=== PATIENT | female | born 1980 | race Caucasian/White ===

== ENCOUNTER 2017-08-28 15:40 | Emergency (ER) | payer OTHER, SELFPAY ==
[2017-08-28 16:57] VITALS: BP 130/85; PULSE 87; RESP 18; TEMP 36.6; O2SAT 100; BMI 21.0
[2017-08-28 17:18] LABS: UTC Influenza A Antigen Negative (Negative); UTC Influenza B Antigen Negative (Negative); UTC Strep Screen (Rapid) Negative (Negative)
--- NOTE | 2017-08-28 17:34 | HMH.EDUTC ---
[facility] [place]ression: Nausea & vomiting Qualifiers: Vomiting type: unspecified Vomiting Intractability: unspecified Qualified Code(s): R11.2 - Nausea with vomiting, unspecified Diarrhea Qualifiers: Diarrhea type: unspecified type Qualified Code(s): R19.7 - Diarrhea, unspecified Disposition: Home, Self-Care Condition on Discharge: Good Instructions: DI for Nausea -- Adult, Nausea and Vomiting-Adult, Diarrhea Additional Instructions: Increase fluids Brat diet If symptoms worsen or do not improve return or be seen in the ER Follow-up with primary care this week Return if fever develops Referrals: You Hernandez MD [Primary Care Provider] - Time of Disposition: 17:38 Medical Decision Making Vital Signs: 08/28/17 16:57 Temperature 97.8 F Temperature Source Temporal Artery Scan Pulse Rate [Brachial] 87 Respiratory Rate 18 Blood Pressure [Right Arm] 130/85 Blood Pressure Mean [Right Arm] 100 Blood Pressure Source [Right Arm] Automatic Cuff Blood Pressure Position [Right Arm] Sitting 02 Sat by Pulse Oximetry 100 Oxygen Delivery Method Room Air - Lab Data Lab Results 08/28/17 17:07: Influenza Type A Ag Negative, Influenza Type B Ag Negative, Strep Scn Rapid Clinic Negative Orders (Tests/Meds): ORDERS Category Date Time Status Strep Screen Confirmation Stat Micro 08/28/17 17:07 Received - Nehemias Inquiry Pt receiving controlled substance: No [facility] [place] - General Chief complaint: Urgent [facility] Center Stated complaint: Stomas virus Time Seen by Provider: 08/28/17 17:35 Mode of Arrival: Ambulatory Source of Information: Patient Limitations: No Limitations Description of Symptoms (Recalled from Triage Doc. by RN): SORE THROAT, ACHES, NAUSEA HEENT Symptoms (Recalled from RN notes): Yes Resp Symptoms (Recalled from RN notes): Yes Skin Symptoms (Recalled from RN notes): No MS Symptoms (Recalled from RN notes): No Functional Status (Recalled from RN notes): NA - History of Present Illness Provider Complaint: 37-year-old female presents for abdominal cramping, nausea, vomiting and diarrhea started today - Related Data Home Medications Medication Instructions Recorded Confirmed No Known Home Medications [No 08/28/17 08/28/17 Known Home Medications] Allergies Allergy/AdvReac Type Severity Reaction Status Date / Time morphine [MORPHINE] Allergy Unknown ITCHING Unverified 07/18/17 14:40 - Worker's Comp Is this a Worker's Comp case?: No [facility] History I have reviewed the patient's past medical history: Yes - *Social History Alcohol Intake: never - Psychiatric History Expresses thoughts of harming self/others: None Suicide Plan Description: No Plan ROS Obtained: Yes All systems reviewed & no additional complaints - Constitutional Constitutional: Reports system reviewed and no additional complaints, except as docu - Eyes Eyes: Reports system reviewed and no additional complaints, except as docu - ENT Ears, Nose, Mouth, and Throat: Reports system reviewed and no additional complaints, except as docu - Cardiovascular Cardiovascular: Reports system reviewed and no additional complaints, except as docu - Respiratory Respiratory: Yes system reviewed and no additional complaints, except as docu - Gastrointestinal Gastrointestingal: Reports: system reviewed and no additional complaints, except as docu, as per HPI, cramping, diarrhea, nausea, vomiting - Musculoskeletal Musculoskeletal: Reports system reviewed and no additional complaints, except as docu - Integumentary/Breasts Skin/Breast: Reports system reviewed and no additional complaints, except as docu - Neurologic Neurologic: Reports system reviewed and no additional complaints, except as docu - Endocrine Endocrine: Reports system reviewed and no additional complaints, except as docu - Hematologic/Lymphatic Henatologic/Lymphatic: Reports system reviewed and no additional co
--- NOTE | 2017-08-28 17:38 | ED_ITS ---
[facility] [place]ression: Nausea & vomiting Qualifiers: Vomiting type: unspecified Vomiting Intractability: unspecified Qualified Code( s): R11.2 - Nausea with vomiting, unspecified Diarrhea Qualifiers: Diarrhea type: unspecified type Qualified Code(s): R19.7 - Diarrhea, unspecified Disposition: Home, Self-Care Condition on Discharge: Good Instructions: DI for Nausea -- Adult, Nausea and Vomiting-Adult, Diarrhea Additional Instructions: Increase fluids Brat diet If symptoms worsen or do not improve return or be seen in the ER Follow-up with primary care this week Return if fever develops Referrals: You Hernandez MD [Primary Care Provider] - Time of Disposition: 17:38 Medical Decision Making Vital Signs: 08/28/17 16:57 Temperature 97.8 F Temperature Source Temporal Artery Scan Pulse Rate [Brachial] 87 Respiratory Rate 18 Blood Pressure [Right Arm] 130/85 Blood Pressure Mean [Right Arm] 100 Blood Pressure Source [Right Arm] Automatic Cuff Blood Pressure Position [Right Arm] Sitting 02 Sat by Pulse Oximetry 100 Oxygen Delivery Method Room Air - Lab Data Lab Results 08/28/17 17:07: Influenza Type A Ag Negative, Influenza Type B Ag Negative, Strep Scn Rapid Clinic Negative Orders (Tests/Meds): ORDERS Category Date Time Status Strep Screen Confirmation Stat Micro 08/28/17 17:07 Received - Nehemias Inquiry Pt receiving controlled substance: No [facility] [place] General Chief complaint: Urgent Treatment Center Stated complaint: Stomas virus Time Seen by Provider: 08/28/17 17:35 Mode of Arrival: Ambulatory Source of Information: Patient Limitations: No Limitations Description of Symptoms (Recalled from Triage Doc. by RN): SORE THROAT, ACHES, NAUSEA HEENT Symptoms (Recalled from RN notes): Yes Resp Symptoms (Recalled from RN notes): Yes Skin Symptoms (Recalled from RN notes): No MS Symptoms (Recalled from RN notes): No Functional Status (Recalled from RN notes): NA - History of Present Illness Provider Complaint: 37-year-old female presents for abdominal cramping, nausea, vomiting and diarrhea started today - Related Data Home Medications Medication Instructions Recorded Confirmed No Known Home Medications [No 08/28/17 08/28/17 Known Home Medications] Allergies Allergy/AdvReac Type Severity Reaction Status Date / Time morphine [MORPHINE] Allergy Unknown ITCHING Unverified 07/18/17 14:40 - Worker's Comp Is this a Worker's Comp case?: No [facility] History I have reviewed the patient's past medical history: Yes - *Social History Alcohol Intake: never - Psychiatric History Expresses thoughts of harming self/others: None Suicide Plan Description: No Plan ROS Obtained: Yes All systems reviewed & no additional complaints - Constitutional Constitutional: Reports system reviewed and no additional complaints, except as docu - Eyes Eyes: Reports system reviewed and no additional complaints, except as docu - ENT Ears, Nose, Mouth, and Throat: Reports system reviewed and no additional complaints, except as docu - Cardiovascular Cardiovascular: Reports system reviewed and no additional complaints, except as docu - Respiratory Respiratory: Yes system reviewed and no ad
== END 2017-08-28 17:47 | disposition home or self-care (01) ==
PROVIDERS: Emergency Provider Nurse Practitioner Family; Family Provider Family Medicine; PCP Family Medicine
DX: R11.2 Nausea with vomiting, unspecified (principal); R19.7 Diarrhea, unspecified; Z88.6 Allergy status to analgesic agent
CPT/HCPCS: 87804; 87880; 99201

== ENCOUNTER 2017-10-01 11:28 | Emergency (ER) | payer OTHER, SELFPAY ==
[2017-10-01 12:12] VITALS: BP 108/82; PULSE 73; RESP 16; TEMP 36.6; O2SAT 99; BMI 21.9
[2017-10-01 12:31] LABS: UTC Influenza A Antigen Negative (Negative); UTC Influenza B Antigen Negative (Negative); UTC Strep Screen (Rapid) Negative (Negative)
--- NOTE | 2017-10-01 12:42 | HMH.EDUTC ---
[facility] [place] Dis[place] Clinical Impression: Allergic sinusitis Allergic rhinitis Qualifiers: Allergic rhinitis trigger: unspecified Allergic rhinitis seasonality: unspecified seasonality Qualified Code(s): J30.9 - Allergic rhinitis, unspecified Disposition: Home, Self-Care Condition on Discharge: Good Instructions: DI for Sinusitis, DI for Allergic Rhinitis Additional Instructions: * No sign of a bacterial infection. Looks and sounds allergic. * Start claritin 10mg daily * Start Flonase 2 sprays each nostril daily * Steroid injection today to try and help relieve symptoms while claritin and flonase start working. * Once feeling better, cut back on flonase to one spray and if symptoms remain controlled, stop it. If symptoms still remain controlled, try stopping claritin too but if symptoms return, restart * Sleep elevated * Humidifier/vaporizer * Warm salt water gargles, warm fluids to drink, sore throat lozenges * tylenol/ibuprofen as needed * * Your throat swab was sent for culture. Those results are typically sent to your primary care. Be sure to follow up in 2-3 days if no improvement so they can review those results and treat if necessary. If you don't have primary care, I recommend you get one but in the mean time, you will have to return to a walk in clinic Prescriptions: Fluticasone Propionate [Flonase 50mcg nasal spray 16gm] 2 spr NS DAILY #1 bottle Loratadine [Claritin 10mg Tablet] 10 mg PO DAILY #30 tab Referrals: You Hernandez MD [Primary Care Provider] - (As needed for new, worsening or persisting symptoms.) Time of Disposition: 12:57 Medical Decision Making Vital Signs: 10/01/17 12:12 Temperature 97.8 F Temperature Source Temporal Artery Scan Pulse Rate [Right Radial] 73 Respiratory Rate 16 Blood Pressure [Right Arm] 108/82 Blood Pressure Mean [Right Arm] 90 Blood Pressure Source [Right Arm] Automatic Cuff Blood Pressure Position [Right Arm] Sitting 02 Sat by Pulse Oximetry 99 Oxygen Delivery Method Room Air - Lab Data Lab results reviewed: Yes: I reviewed the patient's lab results. Lab Results 10/01/17 12:15: Influenza Type A Ag Negative, Influenza Type B Ag Negative, Strep Scn Rapid Clinic Negative Orders (Tests/Meds): ORDERS Category Date Time Status Strep Screen Confirmation Stat Micro 10/01/17 12:15 Received - Nehemias Inquiry Pt receiving controlled substance: No [facility] [place] HPI - General Stated complaint: sore throat,bad christine Time Seen by Provider: 10/01/17 12:42 Mode of Arrival: Family Vehicle Source of Information: Patient Limitations: No Limitations Description of Symptoms (Recalled from Triage Doc. by RN): PT C/O HEADACHE, SORE THROAT, BODY ACHES, AND CHILLS. HEENT Symptoms (Recalled from RN notes): Yes (HEADACHE, SORE THROAT, BODY ACHES, CHILLS) Resp Symptoms (Recalled from RN notes): No Skin Symptoms (Recalled from RN notes): No MS Symptoms (Recalled from RN notes): No Functional Status (Recalled from RN notes): NA - History of Present Illness Provider Complaint: c/o sore throat and sinus headache. I think it might be allergies because I am sneezing and my eyes feel itchy too . Started Monday with itchy throat and has progressed. aches, chills but no fever. No treatment before arrival. No hx of seasonal allergies. - Related Data Previous Rx's Medication Instructions Recorded Ondansetron HCl [Zofran 4mg Tab] 4 mg PO Q8HP PRN 3 Days tab 08/28/17 Fluticasone Propionate [Flonase 2 spr NS DAILY #1 bottle 10/01/17 50mcg nasal spray 16gm] Loratadine [Claritin 10mg Tablet] 10 mg PO DAILY #30 tab 10/01/17 Allergies Allergy/AdvReac Type Severity Reaction Status Date / Time morphine [MORPHINE] Allergy Unknown ITCHING Verified 10/01/17 12:15 - Worker's Comp Is this a Worker's Comp case?: No [facility] History I have reviewed the patient's past medical history: Yes (denies PMHx) Medical History: Denies:: Cancer, Diabetes Mellitus Type 1, Diabetes Mellitus Type 2
--- NOTE | 2017-10-01 12:47 | ED_ITS ---
[facility] [place] Impression: Allergic sinusitis Allergic rhinitis Qualifiers: Allergic rhinitis trigger: unspecified Allergic rhinitis seasonality: unspecified seasonality Qualified Code(s): J30.9 - Allergic rhinitis, unspecified Disposition: Home, Self-Care Condition on Discharge: Good Instructions: DI for Sinusitis, DI for Allergic Rhinitis Additional Instructions: * No sign of a bacterial infection. Looks and sounds allergic. * Start claritin 10mg daily * Start Flonase 2 sprays each nostril daily * Steroid injection today to try and help relieve symptoms while claritin and flonase start working. * Once feeling better, cut back on flonase to one spray and if symptoms remain controlled, stop it. If symptoms still remain controlled, try stopping claritin too but if symptoms return, restart * Sleep elevated * Humidifier/vaporizer * Warm salt water gargles, warm fluids to drink, sore throat lozenges * tylenol/ibuprofen as needed * * Your throat swab was sent for culture. Those results are typically sent to your primary care. Be sure to follow up in 2-3 days if no improvement so they can review those results and treat if necessary. If you don't have primary care , I recommend you get one but in the mean time, you will have to return to a walk in clinic Prescriptions: Fluticasone Propionate [Flonase 50mcg nasal spray 16gm] 2 spr NS DAILY #1 bottle Loratadine [Claritin 10mg Tablet] 10 mg PO DAILY #30 tab Referrals: You Hernandez MD [Primary Care Provider] - (As needed for new, worsening or persisting symptoms.) Time of Disposition: 12:57 Medical Decision Making Vital Signs: 10/01/17 12:12 Temperature 97.8 F Temperature Source Temporal Artery Scan Pulse Rate [Right Radial] 73 Respiratory Rate 16 Blood Pressure [Right Arm] 108/82 Blood Pressure Mean [Right Arm] 90 Blood Pressure Source [Right Arm] Automatic Cuff Blood Pressure Position [Right Arm] Sitting 02 Sat by Pulse Oximetry 99 Oxygen Delivery Method Room Air - Lab Data Lab results reviewed: Yes: I reviewed the patient's lab results. Lab Results 10/01/17 12:15: Influenza Type A Ag Negative, Influenza Type B Ag Negative, Strep Scn Rapid Clinic Negative Orders (Tests/Meds): ORDERS Category Date Time Status Strep Screen Confirmation Stat Micro 10/01/17 12:15 Received - Nehemias Inquiry Pt receiving controlled substance: No [facility] [place] - General Stated complaint: sore throat,bad christine Time Seen by Provider: 10/01/17 12:42 Mode of Arrival: Family Vehicle Source of Information: Patient Limitations: No Limitations Description of Symptoms (Recalled from Triage Doc. by RN): PT C/O HEADACHE, SORE THROAT, BODY ACHES, AND CHILLS. HEENT Symptoms (Recalled from RN notes): Yes (HEADACHE, SORE THROAT, BODY ACHES , CHILLS) Resp Symptoms (Recalled from RN notes): No Skin Symptoms (Recalled from RN notes): No MS Symptoms (Recalled from RN notes): No Functional Status (Recalled from RN notes): NA - History of Present Illness Provider Complaint: c/o sore throat and sinus headache. I think it might be allergies because I am sneezing and my eyes feel itchy too . Started Monday with itchy throat and has progressed. aches, chills but no fever. No treatment before arrival. No hx of seasonal allergies. - Related Data Previous Rx's Medication Instructions Recorded Ondansetron HCl [Zofran 4mg Tab] 4 mg PO Q8HP PRN 3 Da
[2017-10-01 13:01] VITALS: BP 105/78; PULSE 70; RESP 16; TEMP 36.8; O2SAT 100
== END 2017-10-01 13:01 | disposition home or self-care (01) ==
PROVIDERS: Emergency Provider Nurse Practitioner Family; Family Provider Family Medicine; PCP Family Medicine
DX: J30.9 Allergic rhinitis, unspecified (principal); Z88.6 Allergy status to analgesic agent
CPT/HCPCS: 87804; 87880; 96372; 99202

== ENCOUNTER → 2018-02-05 13:31 | Outpatient (CLI) | payer OTHER, SELFPAY ==
--- NOTE | 2018-02-05 13:34 | MM_ITS ---
MM Dig mamm DX unilat LT CAD INDICATION: Left breast lump, palpable abnormality ORDERING PHYSICIAN: Peter Canales PATIENT AGE: 37 years COMPARISON: 06/08/2017 TECHNIQUE: Problem solving views performed with standard images and left breast ultrasound FINDINGS: There is a 2 cm well-circumscribed nodule in the upper outer aspect of the left breast. This may is larger compared to the previous exam. There is an additional 5 mm nodule anterior to the larger lesion.. Left breast ultrasound: There is an 18 x 14 mm cyst at the 1:00 region corresponding to the palpable abnormality. 2:00 there is a and a 6 mm cyst. No suspicious nodules are evident. The findings are similar than when compared to the previous exam. IMPRESSION: Palpable abnormality left breast corresponds to a benign-appearing cyst. This does not appear suspicious for could be aspirated with ultrasound guidance if clinically desired for patient comfort and security BI-RADS Category: 2 Benign Finding(s) Recommend resume screening mammogram in May 2018 The cyst could be aspirated by ultrasound if clinically desired. (A letter has been sent to the patient regarding results of the study.)
--- NOTE | 2018-02-05 14:16 | US_ITS ---
US breast LT complete Ordering Physician: Peter Canales Patient Age: 37 years: Female HISTORY: ITS.REASON: PALP AREA LEFT BREAST INDICATION: Left breast lump, palpable abnormality ORDERING PHYSICIAN: Peter Canales PATIENT AGE: 37 years COMPARISON: 06/08/2017 ultrasound and mammogram TECHNIQUE: Ultrasound Survey entire left breast including axillary survey Left Mammogram 02/05/2018again demonstrated 2 cm well-circumscribed nodule in the upper outer aspect of the left breast. This may be minimally larger compared to previous study from 2017. There is an additional 5 mm nodule anterior to the larger lesion. Today's Mammogram report by Dr. He.. Left breast ultrasound: There is an 20 x18 x 14 mm cyst at the 1:00 region corresponding to the palpable abnormality at 1 o'clock position.. No significant change since 2017 2:00 there is a and a 6 mm cyst. As well as a elongated 7 mm \ No suspicious nodules are evident. The findings are similar than when compared to the previous exam. IMPRESSION: Palpable abnormality left breast corresponds to a benign-appearing cyst. This dominant cyst appears overall similar to previous study from 2017 This appears to be a simple benign cyst no suspicious features. However could be be aspirated with ultrasound guidance if clinically desired for patient comfort and security BI-RADS Category: 2 Benign Finding(s)
== END ==
PROVIDERS: Family Provider Family Medicine; PCP Family Medicine; Visit Provider Nurse Practitioner Family
DX: N63.20 Unspecified lump in the left breast, unspecified quadrant (principal); Z80.3 Family history of malignant neoplasm of breast
CPT/HCPCS: 76641; 77065

== ENCOUNTER → 2018-08-15 14:45 | Outpatient (CLI) | payer OTHER, SELFPAY ==
--- NOTE | 2018-08-15 14:48 | US_ITS ---
US transvaginal HISTORY: ITS.REASON: US T/V- Pelvic Pain, Severe Dysmenorrhea ORDERING PHYSICIAN: Edison Chaudhry MD PATIENT AGE: 38 years Comparison: None FINDINGS: UTERUS: The uterus measures 6.9 x 2.9 x 4.2 cm. Combined endometrial thickness is 4 mm. No uterine mass or endometrial mass evident. There are small Nabothian cysts RIGHT OVARY: Surgically absent LEFT OVARY: 3 x 2 x 2 cm containing a 1 cm cyst CUL-DE-SAC FLUID: No cul-de-sac fluid apparent OTHER FINDINGS: None IMPRESSION: Unremarkable pelvic ultrasound. Prior right oophorectomy
[2018-08-15 16:22] LABS: Basophils # 0.1 K/mm3 (0-0.2); Basophils % 0.8 % (0.1-2.0); Eosinophils # 0.5 K/mm3 (0.0-0.4); Eosinophils % 5.4 % (0.1-12.0); Hematocrit 40.4 % (37.0-47.0); Hemoglobin 12.9 g/dL (12.2-16.2); Lymphocytes # 2.2 K/mm3 (0.7-4.5); Lymphocytes % 23.9 % (10-50); Mean Corpuscular HGB Conc 31.9 g/dL (31.8-35.4); Mean Corpuscular Hemoglobin 30.4 pg (27.0-31.2); Mean Corpuscular Volume 95.4 fl (81-99); Mean Platelet Volume 7.3 fl (7.4-10.4); Monocytes # 0.6 K/mm3 (0.1-1.0); Monocytes % 6.2 % (1.7-9.3); Neutrophils % 63.7 % (37.0-80.0); Platelet Count 291 K/mm3 (142-424); Red Blood Count 4.24 M/mm3 (4.20-5.40); Red Cell Distribution Width 12.6 % (11.5-17.5); White Blood Count 9.4 K/mm3 (4.8-10.8)
[2018-08-15 18:02] LABS: Alanine Aminotransferase 24 U/L (12-78); Albumin Level 3.8 gm/dL (3.4-5.0); Albumin/Globulin Ratio 1.3 (1.1-1.8); Alkaline Phosphatase 77 U/L (46-116); Anion Gap 14.4 mEq/L (5-15); Aspartate Amino Transferase 17 U/L (15-37); Bilirubin,Total 0.2 mg/dL (0.2-1.0); Blood Urea Nitrogen 9 mg/dL (7-18); Calcium 8.9 mg/dL (8.5-10.1); Carbon Dioxide 26 mmol/L (21.0-32.0); Chloride 104 mmol/L (98-107); Creatinine,Serum 0.61 mg/dL (0.55-1.02); Estimated Glomerular Filt Rate 111 ml/min (>60); Free Thyroxine Index 2.4 ug/dL (5.93-13.13); GFR (African American) 134 ML/MIN (>60); Globulin 2.9 gm/dl (1.3-3.2); Glucose 101 mg/dL (74-106); Potassium 4.4 mmoL/L (3.5-5.1); Sodium 140 mmol/L (136-145); T4 (Thyroxine) 6.8 ug/dl (4.7-13.3); Total Protein,Serum 6.7 gm/dL (6.4-8.2); Triiodothryronine (T3) Uptake 36 % (31-39)
== END ==
PROVIDERS: PCP Family Medicine; Visit Provider Nurse Practitioner Obstetrics & Gynecology
DX: N94.6 Dysmenorrhea, unspecified (principal); R10.2 Pelvic and perineal pain
CPT/HCPCS: 36415; 76830; 80053; 84436; 84443; 84479; 85025

== ENCOUNTER → 2018-08-15 15:29 | Outpatient (CLI) | payer OTHER, SELFPAY | PROVIDERS: Visit Provider Nurse Practitioner Obstetrics & Gynecology | DX: R10.2 Pelvic and perineal pain (principal) | CPT/HCPCS: 36415; 80053; 84436; 84443; 84479; 85025 ==

== ENCOUNTER → 2018-09-17 12:15 | Outpatient (CLI) | payer OTHER, SELFPAY ==
[2018-09-17 12:46] LABS: Basophils # 0.1 K/mm3 (0-0.2); Basophils % 0.9 % (0.1-2.0); Eosinophils # 0.3 K/mm3 (0.0-0.4); Eosinophils % 3.5 % (0.1-12.0); Hematocrit 42.3 % (37.0-47.0); Hemoglobin 13.8 g/dL (12.2-16.2); Lymphocytes # 2.8 K/mm3 (0.7-4.5); Lymphocytes % 28.9 % (10-50); Mean Corpuscular HGB Conc 32.7 g/dL (31.8-35.4); Mean Corpuscular Hemoglobin 30.6 pg (27.0-31.2); Mean Corpuscular Volume 93.7 fl (81-99); Mean Platelet Volume 6.7 fl (7.4-10.4); Monocytes # 0.6 K/mm3 (0.1-1.0); Monocytes % 5.7 % (1.7-9.3); Neutrophils % 61.1 % (37.0-80.0); Platelet Count 363 K/mm3 (142-424); Red Blood Count 4.51 M/mm3 (4.20-5.40); White Blood Count 9.8 K/mm3 (4.8-10.8)
[2018-09-17 13:11] LABS: Anion Gap 11.2 mEq/L (5-15); Blood Urea Nitrogen 13 mg/dL (7-18); Calcium 9.2 mg/dL (8.5-10.1); Carbon Dioxide 30 mmol/L (21.0-32.0); Chloride 103 mmol/L (98-107); Creatinine,Serum 0.78 mg/dL (0.55-1.02); Estimated Glomerular Filt Rate 84 ml/min (>60); GFR (African American) 101 ML/MIN (>60); Glucose 73 mg/dL (74-106); Potassium 4.2 mmoL/L (3.5-5.1); Sodium 140 mmol/L (136-145)
[2018-09-17 15:43] LABS: HCG Qualitative, Serum Negative (Negative)
== END ==
PROVIDERS: Visit Provider Nurse Practitioner Obstetrics & Gynecology
DX: Z01.818 Encounter for other preprocedural examination (principal); R10.2 Pelvic and perineal pain; N94.10 Unspecified dyspareunia; N92.0 Excessive and frequent menstruation with regular cycle
CPT/HCPCS: 36415; 80048; 84703; 85025

== ENCOUNTER 2018-09-19 06:06 | Observation (INO) ==
--- NOTE | 2018-09-19 06:45 | Progress Note ---
[facility] Anesthesia Checklist - Patient Identification Patient Identification: Arm Band, Verbal (Name & ) - Structural Data Admitted From: Home Planned Operative Procedure/s: [facility] Consent for Planned Operative Procedure(s) Verified: Yes Verified Documents: History and Physical - NPO Status Verified Time NPO: 00:00 - Chart Verification Results Verified: CBC, BMP - Additional verifications Patient : No Anesthesia Reactions: No Hx Blood Transfusions: No Blood Transfusion Reaction: No Cephalosporin Allergy: No Previous Colonoscopy: No - Cardiovascular Assessment Heart Sounds: S1 & S2 Pulse Strength: Baseline Pulse Rhythm: Regular Peripheral Edema: No - Airway Assessment C-Spine Mobility Assessed: Yes TMJ Mobility Assessed: Yes Dentition: Good Dentition - Neurological Assessment Level of Consciousness: Awake, Alert, Appropriate Hx Seizures: No Numbness or tingling in extremities: No - Anesthesia Plan Anesthesia Risk discussed: Yes Anesthesia Plan: Verified ASA Class: I Anesthesia Type: General [facility] History I have reviewed the patient's past medical history: Yes Medical History: Reports:: Gastroesophageal Reflux Disease(GERD) Denies:: Cancer, Diabetes Mellitus Type 1, Diabetes Mellitus Type 2, Hypertension, Internal Pacemaker, MRSA, Seizures *Have you ever received a pneumonia vaccine?: No *Have you received a flu vaccine this season?: No Laterality Cases: Bilateral: Other Other Surgeries: Yes: , Tubal Ligation, Other. No: Pacemaker Amputation: No Fractures: No - *Social History Educational Level: Completed High School Smoking Status: Current every day smoker Tobacco Type: cigarettes # Packs/Day (cigarettes): 1 Alcohol Intake: never Substance Use Type: denies use *Occupational Status:: employed Housing: house Household Members: significant other *Travel in the last 8 weeks: None - Psychiatric History Expresses thoughts of harming self/others: None Suicide Plan Description: No Plan Family Hx:: Cancer
--- NOTE | 2018-09-19 09:17 | Progress Note ---
[facility] Anesthesia Record Part I Intake, IV Amount: 1,800 Estimated blood loss (mL): 100 Urine output (mL): 100 Blood Pressure: 120/71 SaO2: 99 Pulse Rate: 92 Respiratory Rate: 12 Temperature: 97 F Patient is:: Awake, Stable Stable to PACU at:: 09:20
--- NOTE | 2018-09-19 09:18 | Progress Note ---
[facility] Anesthesia Record Part II Discharge Time: 09:50 Destination: floor PACU nurse assessment reviewed?: Yes Patient Condition:: Good Anesthesia Complications:: None Swallowing reflex intact?: Yes Cyanosis?: No
--- NOTE | 2018-09-19 09:21 | Operative Note ---
Date of procedure: 09/19/18 Pre-op Diagnosis:: Menorrhagia, dysmenorrhea Post-op Diagnosis:: Menorrhagia, dysmenorrhea Procedure performed:: Laparoscopically assisted vaginal hysterectomy, left salpingectomy Surgeon:: Edison Chaudhry MD Aspnet Developer(s):: Ayala Herman INTERIOR DESIGN TEACHER:: Rick Graham Anesthesia: GETA Estimated blood loss (mL): 100 Clinical Note:: She is a 38-year-old lady who complains of heavy periods. She also complains of extremely painful periods. She has had a previous endometrial ablation and right salpingo-oophorectomy. After having discussed the risks and benefits she elected a laparoscopically assisted vaginal hysterectomy and left salpingectomy. Operative findings:: She had a normal-appearing anteverted uterus that had reasonable descensus. The left ovary appeared normal. The left tube had been previously. The right ovary and tube had been previously removed. The appendix appeared normal. The rest of the pelvis appeared normal. The upper abdomen appeared normal. Operative note:: She was taken to the operating room where general anesthesia was found be adequate. She was prepped and draped in the semilithotomy position in the normal sterile fashion. A weighted speculum was placed in the vagina and the anterior lip was grasped with a tenaculum. A uterine acorn manipulator was then placed within the cervical loss. Bladder was drained. I changed gloves and then injected 10 cc of 0.5% ropivacaine around the umbilicus. I made a small incision within the umbilicus and inserted a Veress needle into the abdominal cavity. The abdominal cavity was then insufflated carbon dioxide gas to a pressure of 20 mmHg. I then inserted an 11 mm trocar under direct vision. I injected through the pubic hairline, made a small incision and inserted a 5 mm trocar here under direct vision. I then identified the inferior epigastric arteries on the left side, went lateral to these and injected through and through. I made a small incision and then inserted an 11 mm trocar under vision. This was similarly performed on the patient's right side. The left round ligament was then grasped and cut through with harmonic scalpel. I dissected anteriorly along the peritoneum to the midline. I then cut through the left tube and then the left utero-ovarian ligament with harmonic scalpel. I then freed up the posterior aspect of the broad ligament until of the uterosacral ligament on the left side. I then further dissected the bladder off anteriorly. I skeletonized the uterine arteries on the left side and placed a clip. Using the harmonic scalpel on coagulation mode adjacent to the cervix I then took down the uterine arteries. This was done in a [id number] fashion completely freeing up the left side. I then grasped the right round ligament and opened this up with harmonic scalpel I further dissected the peritoneum anteriorly joining up with the other side. I then took down the right utero-ovarian ligament and applied a clip. The posterior aspect of the broad ligament was then taken down with harmonic scalpel to the level of the uterosacral ligament. I then skeletonized the uterine arteries on the right side and applied a Hemoclip. Staying adjacent to the cervix I once again used Harmonic scalpel on coagulation mode and took down the uterine arteries. I once again assured hemostasis and then turned my attention to the left tube. I grasped the distal end of the left tube and using harmonic scalpel I cut along the mesosalpinx. The tube was then removed through the 11 mm trocar on the left side. After once again assuring hemostasis we then turned our attention to the vaginal portion of the surgery. The patient was placed in lithotomy position and a weighted speculum was placed in the vagina. The anterior and posterior lip of the cervix were grasped with Sun tenacula. I injected 20 cc of 1% Xylocaine with epinephrine circumferentially about roots. I circumscribed the cervix with knife. I then opened up into the posterior cul-de-sac using Eugene scissors. A long weighted speculum was then placed through this defect. The left uterosacral ligament was then clamped cut and suture-ligated and tagged. This is followed by the left cardinal ligament which was clamped cut and suture-ligated and tagged. I then elected to open up into the anterior of the sac using both sharp and blunt dissection. A Francesco retractor was placed through this defect. Similarly on the right side I clamped cut and suture- ligated and tagged the right uterosacral ligament. This was followed by the right cardinal ligament which was clamped cut and suture-ligated. There was a small amount of tissue on the right side and I clamped across this and cut it. There was also a small amount on the left side which was similarly clamped and cut. This freed up the uterus completely and it was sent off to pathology The 2 small pedicles of tissue were then suture-ligated. Then inserted a short weighted speculum I then closed the posterior cuff using running 2-0 Vicryl suture in a locked fashion. This was followed by placement of a Art suture using 0 PDS suture first through the vagina and peritoneum next to the left perirectal fascia. I then plicated across the posterior peritoneum and passed the suture through the right perirectal fascia. Suture was then passed through the peritoneum and vagina. This was left to be tied at the end. Then grasped the anterior peritoneum and using 2-0 PDS suture in a pursestring fashion I closed the peritoneum. Vagina mucosa was then closed using running 0 Vicryl suture from anterior to posterior from left to right in a locked fashion. The Art suture was then tied. I then inserted a Ospina catheter. Clear urine was seen to follow. I then changed gloves and plate of the abdominal cavity with carbon dioxide gas. Once again hemostasis was assured. The gas was let out of the abdomen and once ensured hemostasis. I injected approximately 20 cc of 0.5% ropivacaine into the pelvis. The secondary trochars were then removed under direct vision. The sites were hemostatic. The gas was noted of the abdomen and once again and mammary trocar and camera were removed. No bowel was seen to follow. The 11 mm trocar sites were then closed deeply with [id number] 2-0 Vicryl. The skin was closed with subcuticular 4-0 running Monocryl suture. 5 mm trocar site was closed with subcuticular 4-0 Monocryl suture. Dressings were applied. She tolerated procedure well and was taken to the recovery room in excellent condition. All sponge instrument and needle counts were correct. The estimated blood loss was approximately 100 cc. Condition: stable Disposition: PACU Specimens:: Uterus and left fallopian Complications:: None
[2018-09-19 14:29] LABS: Hematocrit 39.6 % (37.0-47.0); Hemoglobin 13.3 g/dL (12.2-16.2)
[2018-09-20 07:08] LABS: Anion Gap 10.5 mEq/L (5-15); Calcium 9.1 mg/dL (8.5-10.1); Potassium 4.5 mmoL/L (3.5-5.1)
[2018-09-20 07:09] LABS: Basophils % 0.1 % (0.1-2.0); Eosinophils # 0.1 K/mm3 (0.0-0.4); Eosinophils % 0.5 % (0.1-12.0); Hematocrit 38.4 % (37.0-47.0); Hemoglobin 12.8 g/dL (12.2-16.2); Lymphocytes # 2.2 K/mm3 (0.7-4.5); Lymphocytes % 12.3 % (10-50); Mean Corpuscular HGB Conc 33.4 g/dL (31.8-35.4); Mean Corpuscular Hemoglobin 31.3 pg (27.0-31.2); Mean Corpuscular Volume 93.7 fl (81-99); Mean Platelet Volume 7.2 fl (7.4-10.4); Monocytes # 1.1 K/mm3 (0.1-1.0); Monocytes % 6.1 % (1.7-9.3); Neutrophils # 14.6 K/mm3 (1.8-7.8); Neutrophils % 81.1 % (37.0-80.0); Platelet Count 349 K/mm3 (142-424); Red Cell Distribution Width 12.8 % (11.5-17.5)
[2018-09-20 07:45] LABS: Lymphocytes % 9 % (10-50); Monocytes % 6 % (2-9); Neutrophils % 85 % (42-76); Total Cells Counted 100
--- NOTE | 2018-09-20 08:12 | Discharge Summary ---
General - General Admission date:: 09/19/18 Discharge date: 09/20/18 HPI HPI: She is a 38-year-old lady who complains of severe pain with periods as well as heavier periods. She has had a previous right salpingo-oophorectomy. After having discussed the risks and benefits she elected to have a laparoscopically vaginal hysterectomy as well as left salpingectomy. Hospital Course Hospital Course: On September 19, 2018 she underwent a laparoscopically assisted vaginal hysterectomy and left salpingectomy. She has done well postop and afebrile throughout her hospitalization. She is eating drinking and ambulating. She is voiding well. She has not had a bowel movement. She denies any shortness of breath or chest pain. She denies any calf tenderness. Objective Vital signs: Temp Pulse Resp BP Pulse Ox 97.9 F 73 16 106/53 L 99 09/20/18 04:15 09/20/18 04:15 09/20/18 04:15 09/20/18 04:15 09/20/18 04:15 - Detailed Eye Exam Eyelids: Left normal inspection Results Labs on day of discharge: Labs from last 24 hours 09/20/18 09/20/18 09/19/18 06:18 06:18 14:12 WBC 18.0 H D RBC 4.10 L Hgb 12.8 13.3 Hct 38.4 39.6 MCV 93.7 MCH 31.3 H MCHC 33.4 RDW 12.8 Plt Count 349 MPV 7.2 L Neut % (Auto) 81.1 H Lymph % (Auto) 12.3 [place] % (Auto) 6.1 Eos % (Auto) 0.5 Baso % (Auto) 0.1 Neut # (Auto) 14.6 H Lymph # (Auto) 2.2 [place] # (Auto) 1.1 H Eos # (Auto) 0.1 Baso # (Auto) 0.0 Total Counted 100 Neutrophils % (Manual) 85 H Lymphocytes % (Manual) 9 L Monocytes % (Manual) 6 Platelet Estimate Normal Sodium 137 Potassium 4.5 Chloride 103 Carbon Dioxide 28 Anion Gap 10.5 BUN 14 Creatinine 0.75 Estimated Creat Clear 91 Estimated GFR 87 Est GFR ( Amer) 106 Glucose 100 Calcium 9.1 Urine Color Urine Appearance Urine pH Ur Specific [place] Urine Protein Urine Glucose (UA) Urine Ketones Urine Blood Urine Nitrate Urine Bilirubin Urine Urobilinogen Ur Leukocyte Esterase Urine RBC Urine WBC Ur Squamous Epith Cells Urine Bacteria 09/19/18 08:42 WBC RBC Hgb Hct MCV MCH MCHC RDW Plt Count MPV Neut % (Auto) Lymph % (Auto) [place] % (Auto) Eos % (Auto) Baso % (Auto) Neut # (Auto) Lymph # (Auto) [place] # (Auto) Eos # (Auto) Baso # (Auto) Total Counted Neutrophils % (Manual) Lymphocytes % (Manual) Monocytes % (Manual) Platelet Estimate Sodium Potassium Chloride Carbon Dioxide Anion Gap BUN Creatinine Estimated Creat Clear Estimated GFR Est GFR ( Amer) Glucose Calcium Urine Color Yellow Urine Appearance Clear Urine pH 7.5 Ur Specific [place] 1.015 Urine Protein Negative Urine Glucose (UA) Negative Urine Ketones Negative Urine Blood Trace-l Urine Nitrate Negative Urine Bilirubin Negative Urine Urobilinogen 0.2 Ur Leukocyte Esterase Negative Urine RBC Occasional Urine WBC 3-5 Ur Squamous Epith Cells Occasional Urine Bacteria Trace DS: Diagnosis - Discharge Diagnosis (1) Dysmenorrhea Status: Acute (2) Menorrhagia Status: Acute (3) Pelvic pain Status: Acute Discharge Plan - Patient Discharge Instructions ACTIVITY: No heavy lifting DIET: continue same diet - Follow up Plan Disposition: Home, Self-Long-Term Medications: Home Medications Medication Instructions Recorded Confirmed Type No Known Home Medications 09/18/18 09/19/18 History Oxycodone HCl/Acetaminophen 1 - 2 tab PO Q4-6H PRN #30 tab 09/20/18 Rx [Percocet 5/325mg tablet] Prescriptions/Medication Reconciliation: New Oxycodone HCl/Acetaminophen [Percocet 5/325mg tablet] 1 - 2 tab PO Q4-6H PRN #30 tab PRN Reason: Severe Pain No Action No Known Home Medications
--- NOTE | 2018-09-20 08:58 | Pharmacy Consult Notes ---
[facility] Pharmacy VTE Monitoring - Patient Demographics Admission date: 09/19/18 Report Date: 09/20/18 Time: 08:58 Allergies/Adverse Reactions: Patient Allergies morphine [MORPHINE] Allergy (Unknown, Verified 09/18/18 13:05) ITCHING Height: 1.57 m Weight: 55.338 kg Patient Problems: Current Active Problems Dysmenorrhea (Acute) Menorrhagia (Acute) - VTE Risk Labs: VTE Related Lab Results Hgb 12.8 g/dL (12.2-16.2) 09/20/18 06:18 Hct 38.4 % (37.0-47.0) 09/20/18 06:18 Plt Count 349 K/mm3 (142-424) 09/20/18 06:18 BUN 14 mg/dL (7-18) 09/20/18 06:18 Creatinine 0.75 mg/dL (0.55-1.02) 09/20/18 06:18 Estimated Creat Clear 91 mL/min (50-200) 09/20/18 06:18 - Prophylaxis VTE Prophylaxis Ordered?: Yes Types of VTE Prophylaxis: IPCS Thigh High Location of Applied Device: Bilateral Lower Extremeties - VTE Diagnosis Confirmed Treatment or plan recommended: Continue Current Treatment
== END 2018-09-20 09:00 | disposition home or self-care (01) ==
LOC: OB 06:06 → OR 06:06
PROVIDERS: ADMIT Nurse Practitioner Obstetrics & Gynecology; ATTEND Nurse Practitioner Obstetrics & Gynecology
CPT/HCPCS: 36415; 80048; 81001; 85007; 85014; 85018; 85025; 96374; G0378; J0131; J2405; J2710

== ENCOUNTER → 2019-02-11 15:19 | Outpatient (CLI) | payer OTHER, SELFPAY ==
--- NOTE | 2019-02-11 15:21 | MM_ITS ---
MM Dig screening mamm BI w/CAD CAD Screening COMPARISON: Digital mammograms with CAD 06/08/2017 and diagnostic digital left mammogram with CAD 02/05/2018 INDICATION: There is a history of breast cancer patient's mother diagnosed at age 42. TECHNIQUE: Standard CC and MLO images were obtained. R2 CAD reviewed. FINDINGS: Scattered fibroglandular densities are seen in both breast primarily upper outer quadrants. Again is a dominant benign-appearing density upper outer quadrant left breast measuring 1.9 x 1.8 cm and basically unchanged in size and overall appearance from the previous exam. Ultrasound performed same date as the previous mammogram 02/05/2018 showed a benign-appearing cyst. Again noted is a smaller cystic-appearing lesion just anterior to the dominant lesion also stable and unchanged from previous exam. There is no new or suspicious lesion in either breast and there are no suspicious microcalcifications. IMPRESSION: Stable benign-appearing cystic lesion left breast and as explained on the previous dictation cyst aspiration could be offered to the patient if desired for patient comfort. BI-RADS Category: 2 Benign Finding(s) RECOMMENDED FOLLOW-UP: 1YR - 1 YEAR FOLLOW-UP (A letter has been sent to the patient regarding results of the study.)
== END ==
PROVIDERS: PCP Family Medicine; Visit Provider Nurse Practitioner Obstetrics & Gynecology
DX: Z12.31 Encounter for screening mammogram for malignant neoplasm of breast (principal)
CPT/HCPCS: 77067

== ENCOUNTER → 2020-05-13 08:57 | Outpatient (CLI) | payer OTHER, SELFPAY | PROVIDERS: PCP Family Medicine; Visit Provider Nurse Practitioner | DX: Z03.818 Encounter for observation for suspected exposure to other biological agents ruled out (principal) | CPT/HCPCS: U0003 ==

== ENCOUNTER → 2020-05-21 08:59 | Outpatient (CLI) | payer OTHER, SELFPAY | PROVIDERS: PCP Family Medicine; Visit Provider Family Medicine | DX: Z03.818 Encounter for observation for suspected exposure to other biological agents ruled out (principal) | CPT/HCPCS: U0003 ==

== ENCOUNTER → 2021-05-02 10:21 | Outpatient (CLI) | payer OTHER, SELFPAY ==
[2021-05-02 10:59] LABS: Adenovirus,PCR Not Detected (NotDetected); Bordetella Pertussis Not Detected (NotDetected); Chlamydophila Pneumoniae, PCR Not Detected (NotDetected); Coronavirus 19, PCR Not Detected (NotDetected); Coronavirus 229E Not Detected (NotDetected); Coronavirus NL63 Not Detected (NotDetected); Coronavirus OC43 Not Detected (NotDetected); Coronovirus HKU1,PCR Not Detected (NotDetected); Human Metapneumovirus Not Detected (NotDetected); Influenza A, PCR Not Detected (NotDetected); Influenza AH1, 2009 Not Detected (NotDetected); Influenza AH1, PCR Not Detected (NotDetected); Influenza AH3,PCR Not Detected (NotDetected); Influenza B, PCR Not Detected (NotDetected); Mycoplasma Pneumoniae, PCR Not Detected (NotDetected); Parainfluenza 1, PCR Not Detected (NotDetected); Parainfluenza 2, PCR Not Detected (NotDetected); Parainfluenza 3, PCR Not Detected (NotDetected); Parainfluenza 4, PCR Not Detected (NotDetected); Respiratory Syncytial Virus Not Detected (NotDetected)
[2021-05-02 12:41] LABS: Rhinovirus/Enterovirus Detected (NotDetected)
== END ==
PROVIDERS: PCP Family Medicine; Visit Provider Emergency Medicine
DX: Z20.822 Contact with and (suspected) exposure to COVID-19 (principal); R52 Pain, unspecified; R05.9 Cough, unspecified; B34.1 Enterovirus infection, unspecified
CPT/HCPCS: 87581; 87632; 87798; C9803; U0003; U0005

== ENCOUNTER → 2021-06-01 15:46 | Outpatient (CLI) | payer OTHER, SELFPAY | PROVIDERS: PCP Family Medicine; Visit Provider Nurse Practitioner | DX: Z20.822 Contact with and (suspected) exposure to COVID-19 (principal) | CPT/HCPCS: C9803; U0003; U0005 ==

== ENCOUNTER → 2021-06-23 10:14 | Outpatient (CLI) | payer OTHER, SELFPAY ==
--- NOTE | 2021-06-23 10:14 | MM_ITS ---
PROCEDURE INFORMATION: Exam: MG Bilateral Screening 3D Mammography Exam date and time: 06/23/2021 10:14 AM Age: 41 years old Clinical indication: Screening mammogram TECHNIQUE: Imaging protocol: Bilateral screening tomosynthesis and 2D mammography including computer-aided detection (CAD) when performed. COMPARISON: 1. MG DIG MAMM-SCREEN JOAQUÍN 02/11/2019 3:53 PM 2. MG DXLT MM Dig mamm DX unilat LT CAD 02/05/2018 1:56 PM 3. MG DMBAV DIG MAMM- JOAQUÍN ADD VIEWS W/CAD 06/08/2017 2:25 PM 4. MG DMSB DIG MAMM-SCREEN JOAQUÍN W/CAD 05/31/2017 4:52 PM FINDINGS: MAMMOGRAPHY: Breast composition: There are scattered areas of fibroglandular density. Mass: Stable benign-appearing nodules are present in the left breast. No new or morphologically suspicious nodule has developed to suggest malignancy. Architectural distortion: No new or suspicious architectural distortion. Calcifications: No new or suspicious calcifications are present Asymmetric density: No new or suspicious asymmetric density is present Skin thickening: None. Axillary adenopathy: None. IMPRESSION: No mammographic evidence of malignancy. Recommend annual screening mammography unless otherwise clinically indicated. ASSESSMENT: BI-RADS category 2: Benign
== END ==
PROVIDERS: PCP Family Medicine; Visit Provider Nurse Practitioner Obstetrics & Gynecology
DX: Z12.31 Encounter for screening mammogram for malignant neoplasm of breast (principal)
CPT/HCPCS: 77063; 77067

== ENCOUNTER → 2021-09-05 20:01 | Outpatient (CLI) | payer OTHER, SELFPAY | PROVIDERS: PCP Family Medicine; Visit Provider Nurse Practitioner Family | DX: Z20.822 Contact with and (suspected) exposure to COVID-19 (principal) | CPT/HCPCS: C9803; U0003; U0005 ==

== ENCOUNTER 2021-10-17 11:10 | Emergency (ER) | payer OTHER, SELFPAY ==
[2021-10-17 12:30] VITALS: BP 126/55; PULSE 77; RESP 18; TEMP 37.1; O2SAT 99; BMI 21.6
--- NOTE | 2021-10-17 12:37 | XR_ITS ---
PROCEDURE INFORMATION: Exam: XR Lumbosacral Spine Exam date and time: 10/17/2021 1:16 PM Age: 41 years old Clinical indication: Low back pain TECHNIQUE: Imaging protocol: XR of the lumbosacral spine. Views: 2 or 3 views. 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 Vertebral body heights are well preserved. There is no significant disc space narrowing. The spinal canal is patent. No aggressive osseous lesions. Soft tissues: Multiple surgical clips project over the pelvis. There is no significant soft tissue swelling. Gastrointestinal tract: Nonobstructive bowel gas pattern. There is excessive colonic stool content. Other findings: There is no evidence of acutely displaced fractures. There is no evidence of joint dislocation. IMPRESSION: No acute skeletal pathology or other discrete skeletal findings to explain the patient's low back pain. I do not see any significant degenerative disease in the lumbar spine at this time.
--- NOTE | 2021-10-17 12:54 | HMH.EDUTC ---
[facility] Disposition Clinical Impression: Low back pain with right-sided sciatica Qualifiers: Chronicity: acute Back pain laterality: right Qualified Code(s): M54.41 - Lumbago with sciatica, right side Disposition: Home, Self-Care Condition on Discharge: Good Instructions: DI for Back Pain With Sciatica Additional Instructions: follow up with pcp return if any new symptoms or worsting of symptoms rest tylenol or motrin as needed steroids as ordered start tomorrow ice 20 mins remove repeat once a hour for comfort Prescriptions: predniSONE [Prednisone 20mg Tab] 20 mg PO BID #10 tab Transmission Status: Pending to [id number] Referrals: You Hernandez MD [Primary Care Provider] - Time of Disposition: 13:49 Medical Decision Making - Nehemias Inquiry Pt receiving controlled substance: No Vital Signs: 10/17/21 12:30 Temperature 98.8 F Temperature Source Oral Pulse Rate [Right Brachial] 77 Respiratory Rate 18 Blood Pressure [Right Arm] 126/55 L Blood Pressure Mean [Right Arm] 78 Blood Pressure Source [Right Arm] Automatic Cuff Blood Pressure Position [Right Arm] Sitting 02 Sat by Pulse Oximetry 99 Oxygen Delivery Method Room Air Orders (Tests/Meds): ORDERS Category Date Time Status XR lumbar spine 2-3V Stat Exams 10/17/21 12:37 Taken [facility] HPI - General Chief complaint: Urgent Treatment Center Stated complaint: lower right back pain Time Seen by Provider: 10/17/21 12:54 Mode of Arrival: Ambulatory Source of Information: Patient Limitations: No Limitations Description of Symptoms (Recalled from Triage Doc. by RN): PATIENT C/O RIGHT LOWER BACK PAIN X 3-4 DAYS. REPORTS A HISTORY OF BACK PAIN AND SCIATICA AND BACK SURGERY IN 2017 HEENT Symptoms (Recalled from RN notes): No Resp Symptoms (Recalled from RN notes): No Skin Symptoms (Recalled from RN notes): No MS Symptoms (Recalled from RN notes): Yes Functional Status (Recalled from RN notes): WNL - History of Present Illness Provider Complaint: 41 yr old female presents for low back pain with scatica down rt leg. Pt states back surgery [id number]. pt states hx of scatica and states if flares up every few months and this feels like that. no loss of bowel or bladder - Related Data Previous Rx's Medication Instructions Recorded Oxycodone HCl/Acetaminophen 1 - 2 tab PO Q4-6H PRN #30 tab 09/20/18 [Percocet 5/325mg tablet] predniSONE [Prednisone 20mg 20 mg PO BID #10 tab 10/17/21 Tab] Allergies Allergy/AdvReac Type Severity Reaction Status Date / Time morphine [MORPHINE] Allergy Unknown ITCHING Verified 10/31/18 14:00 - Worker's Comp Is this a Worker's Comp case?: No [facility] History - Hepatitis A Screen Drug use history?: No High risk sexual behaviors?: No History of sexually transmitted infection?: No Currently employed?: No Childcare worker?: No Do you have indoor plumbing?: Yes Do you have electricity?: Yes Attestation statement:: This patient has been screened for Hepatitis A risk factors. I have reviewed the patient's past medical history: Yes Medical History: Reports:: Gastroesophageal Reflux Disease(GERD) Denies:: Cancer, Diabetes Mellitus Type 1, Diabetes Mellitus Type 2, Hypertension, Internal Pacemaker, MRSA, Seizures Other Medical History: Denies: Blood Transfusion Reaction Laterality Cases: Bilateral: Other Other Surgeries: Yes: , Hysterectomy-Total, Tubal Ligation, Other. No: Pacemaker Amputation: No Fractures: No - Social History Smoking Status: Current every day smoker Tobacco Type: cigarettes # Packs/Day (cigarettes): 1 Alcohol Intake: never Substance Use Type: denies use Occupational Status: employed Housing: house Household Members: significant other Family Hx:: Cancer Comment: Breast Cancer (Mother) ROS Obtained: Yes Systems reviewed as appropriate & no additional complaints - Constitutional Constitutional: Reports system reviewed and no additional complaints, except as d
[2021-10-17 13:53] VITALS: BP 126/55; PULSE 77; RESP 18; TEMP 37.1; O2SAT 99
== END 2021-10-17 14:02 | disposition home or self-care (01) ==
PROVIDERS: Emergency Provider Nurse Practitioner Family; PCP Family Medicine
DX: M54.41 Lumbago with sciatica, right side (principal); K21.9 Gastro-esophageal reflux disease without esophagitis; F17.210 Nicotine dependence, cigarettes, uncomplicated; Z79.52 Long term (current) use of systemic steroids; Z79.899 Other long term (current) drug therapy; Z88.5 Allergy status to narcotic agent
CPT/HCPCS: 72100; 96372; 99213; G0463

== ENCOUNTER 2021-10-18 03:44 | Emergency (ER) | payer OTHER, SELFPAY ==
[2021-10-18 03:51] VITALS: BP 140/69; PULSE 89; RESP 20; TEMP 36.8; O2SAT 98; BMI 23.8
[2021-10-18 03:53] VITALS: BMI 23.8
--- NOTE | 2021-10-18 03:55 | CT_ITS ---
PROCEDURE INFORMATION: Exam: CT Lumbar Spine Without Contrast Exam date and time: 10/18/2021 4:28 AM Age: 41 years old Clinical indication: Low back pain and other: Radiating down RT leg; Additional info: Lower R back pain, R leg numbness TECHNIQUE: Imaging protocol: Computed tomography images of the lumbar spine without contrast. Radiation optimization: All CT scans at this facility use at least one of these dose optimization techniques: automated exposure control; mA and/or kV adjustment per patient size (includes targeted exams where dose is matched to clinical indication); or iterative reconstruction. 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 Subtle lower lumbar spondylosis with minor L5-S1 listhesis. Soft tissues: Tiny nonobstructing right renal calculi. IMPRESSION: 1. No acute fracture. 2. Subtle lower lumbar spondylosis with minor L5-S1 listhesis. 3. Tiny nonobstructing right renal calculi.
[2021-10-18 04:00] LABS: Basophils # 0.1 K/mm3 (0-0.2); Basophils % 0.4 % (0.1-2.0); Eosinophils # 0.1 K/mm3 (0.0-0.4); Eosinophils % 0.5 % (0.1-12.0); Hematocrit 46.1 % (37.0-47.0); Hemoglobin 14.6 g/dL (12.2-16.2); Lymphocytes # 1.6 K/mm3 (0.7-4.5); Mean Corpuscular HGB Conc 31.7 g/dL (31.8-35.4); Mean Corpuscular Hemoglobin 31.1 pg (27.0-31.2); Mean Corpuscular Volume 98.1 fl (81-99); Mean Platelet Volume 8.3 fl (7.4-10.4); Monocytes # 0.5 K/mm3 (0.1-1.0); Monocytes % 3.4 % (1.7-9.3); Neutrophils # 11.9 K/mm3 (1.8-7.8); Neutrophils % 84.8 % (37.0-80.0); Platelet Count 392 K/mm3 (142-424); Red Cell Distribution Width 13.1 % (11.5-17.5); White Blood Count 14.1 K/mm3 (4.8-10.8)
[2021-10-18 04:11] LABS: Alanine Aminotransferase 21 U/L (12-78); Albumin Level 4.7 g/dl (3.5-5.0); Albumin/Globulin Ratio 1.7 (1.1-1.8); Alkaline Phosphatase 77 U/L (38-126); Anion Gap 11.1 mEq/L (5-15); Aspartate Amino Transferase 29 U/L (14-36); Bilirubin,Total 0.6 mg/dl (0.2-1.3); Blood Urea Nitrogen 17 mg/dl (7-17); Calcium 9.4 mg/dl (8.4-10.2); Carbon Dioxide 23 mmol/L (22.0-30.0); Chloride 107 mmol/L (98-107); Creatinine Clearance Estimated 141 mL/min (50-200); Estimated Glomerular Filt Rate 137 ml/min (>60); GFR (African American) 166 ML/MIN (>60); Globulin 2.8 g/dL (1.3-3.2); Glucose 108 mg/dl (74-100); Potassium 4.1 mmoL/L (3.5-5.1); Sodium 137 mmol/L (136-145); Total Protein,Serum 7.5 g/dl (6.3-8.2)
[2021-10-18 04:16] LABS: C-Reactive Protein 0.4 mg/L (0-4)
[2021-10-18 04:22] LABS: Erythrocyte Sedimentation Rate 4 mm/hr (0-20)
[2021-10-18 04:43] LABS: Procalcitonin < 0.030 ng/mL (0.0-2.0)
--- NOTE | 2021-10-18 05:25 | HMH.EDBACK ---
ED Disposition Clinical Impression: Lumbar radiculopathy Disposition: Home, Self-Care Condition on Discharge: Good Instructions: DI for Back Pain With Sciatica Additional Instructions: see pcp for follow up Referrals: Grace Madrigal APRN [Primary Care Provider] - - Critical Care Critical Care Time: No Attestation: On 10/18/21, the high probability of a clinically significant, sudden or life threatening deterioration of the following system(s) required my full and direct attention, intervention and personal management. The time I documented below is in addition to time spent performing reported procedures but includes the following listed in this critical care notation. Medical Decision Making - Medical Records Medical records reviewed: Yes: I reviewed the patient's medical records. - Nehemias Inquiry Pt receiving controlled substance: No Vital Signs: 10/18/21 03:51 10/18/21 05:30 Temperature 98.2 F Temperature Source Oral Pulse Rate [Apical] 89 Respiratory Rate 20 Blood Pressure 116/61 Blood Pressure [Right Arm] 140/69 Blood Pressure Mean 84 Blood Pressure Mean [Right Arm] 92 Blood Pressure Source [Right Arm] Automatic Cuff Blood Pressure Position [Right Arm] Sitting 02 Sat by Pulse Oximetry 98 Oxygen Delivery Method Room Air - Lab Data Lab results reviewed: Yes: I reviewed the patient's lab results. Lab Results 10/18/21 03:50: ESR 4 10/18/21 03:50: C-Reactive Protein 0.4, Procalcitonin < 0.030 10/18/21 03:50: WBC 14.1 H, RBC 4.70, Hgb 14.6, Hct 46.1, MCV 98.1, MCH 31.1, MCHC 31.7 L, RDW 13.1, Plt Count 392, MPV 8.3, Neut % (Auto) 84.8 H, Lymph % (Auto) 11.0, [place] % (Auto) 3.4, Eos % (Auto) 0.5, Baso % (Auto) 0.4, Neut # (Auto) 11.9 H, Lymph # (Auto) 1.6, [place] # (Auto) 0.5, Eos # (Auto) 0.1, Baso # (Auto) 0.1 10/18/21 03:50: Sodium 137, Potassium 4.1, Chloride 107, Carbon Dioxide 23, Anion Gap 11.1, BUN 17, Creatinine 0.50 L, Estimated Creat Clear 141, Estimated GFR 137, Est GFR ( Amer) 166, Glucose 108 H, Calcium 9.4, Total Bilirubin 0.6, AST 29, ALT 21, Alkaline Phosphatase 77, Total Protein 7.5, Albumin 4.7, Globulin 2.8, Albumin/Globulin Ratio 1.7 Result diagrams: 10/18/21 03:50 10/18/21 03:50 Orders (Tests/Meds): ED MEDICATIONS Generic Name Dose Route Start Last Admin Trade Name Freq PRN Reason Stop Dose Admin Lactated Ringer's 1,000 mls @ 999 mls/hr 10/18/21 04:00 10/18/21 04:08 Lactated Ringer's 1000 Ml Bag IV 10/18/21 05:00 999 mls/hr .Q1H1M NARINDER Administration Discontinued Medications Generic Name Dose Route Start Last Admin Trade Name Freq PRN Reason Stop Dose Admin Hydromorphone HCl 1 mg 10/18/21 03:56 10/18/21 04:08 Hydromorphone 2mg/Ml Syringe IV 10/18/21 03:57 1 mg ONCE ONE Administration Ondansetron HCl 4 mg 10/18/21 04:06 10/18/21 04:07 Ondansetron 4mg/2ml Vial IV 10/18/21 04:07 4 mg ONCE ONE Administration Promethazine HCl 25 mg 10/18/21 03:56 10/18/21 05:08 Promethazine Hcl 25mg/Ml 1ml Vial IV 10/18/21 03:57 Not Given ONCE ONE Sodium Chloride 25 ml 10/18/21 03:56 Sodium Chloride 0.9% 25ml Bag IV 10/18/21 03:57 ONCE ONE ORDERS Category Date Time Status UA [Urinalysis and Microscopic] Stat Lab 10/18/21 06:10 Received - CT Data CT Scan: L-Spine Time Received: 06:[address] Reviewed: Yes: I have viewed the radiologist's interpretation Preliminary Findings: Abnormal Medical Decision Narrative: has acute rt lumbar disc and will need to see pcp for follow up - no cauda equina sx Back Pain HPI - General Chief Complaint: Back Pain/Injury Stated Complaint: pain Time Seen by Provider: 10/18/21 05:00 Mode of Arrival: Wheelchair Source of Information: Patient, Medical Record Limitations: No Limitations Description of Symptoms (Recalled from ER Triage Doc. by RN): Patient states that she has been having issues with a pinched sciatic nerve in her right hip for 6 months. States t
[2021-10-18 05:30] VITALS: BP 116/61
[2021-10-18 06:16] LABS: Microscopic, Urine URINE MICROSCOPIC (MICROSCOPIC)
[2021-10-18 06:27] LABS: Appearance,Urine CLEAR (Clear); Bilirubin,Urine Negative (Negative); Blood, Urine TRACE-I (Negative); Color,Urine YELLOW (Yellow); Glucose,Urine (UA) Negative (Negative); Ketones,Urine Negative (Negative); Leukocyte Esterase,Urine Negative (Negative); Nitrate,Urine Negative (Negative); PH,Urine 6.5 (5.0-8.5); Protein,Urine Negative (Negative); Urobilinogen,Urine 0.2 EU/dl (0.2)
[2021-10-18 06:34] VITALS: BP 114/72; PULSE 82; RESP 18; TEMP 36.7; O2SAT 97
[2021-10-18 06:40] LABS: Squamous Epithelial Cell,Urine Occasional #/hpf (0-5)
== END 2021-10-18 06:49 | disposition home or self-care (01) ==
PROVIDERS: Emergency Provider Emergency Medicine; PCP Nurse Practitioner Family
DX: M54.16 Radiculopathy, lumbar region (principal); K21.9 Gastro-esophageal reflux disease without esophagitis; F17.210 Nicotine dependence, cigarettes, uncomplicated
CPT/HCPCS: 96374; 72131; 80053; 81001; 84145; 85025; 85651; 86140; 96365; 96375; J2405

== ENCOUNTER → 2021-10-25 15:24 | Outpatient (CLI) | payer OTHER, SELFPAY ==
--- NOTE | 2021-10-25 | CA_ITS ---
FINAL REPORT TECHNIQUE: Color Doppler, duplex Doppler and compression sonography of the right lower extremity venous system was performed. CLINICAL HISTORY: BACK SURGERY 2017 FINDINGS: There is no evidence of deep venous thrombosis from the level of the groin to the calf. The veins are patent and compressible. IMPRESSION: No evidence of deep venous thrombosis right lower extremity. Reviewed, Interpreted and Dictated by Jamar Arce III, MD Transcribed by Marilu Burden Authenticated by Jamar Arce III, MD on 10/25/2021 04:41:09 PM [facility]
== END ==
PROVIDERS: PCP Nurse Practitioner Family; Visit Provider Nurse Practitioner Family
DX: M79.604 Pain in right leg (principal); M79.89 Other specified soft tissue disorders
CPT/HCPCS: 93971

== ENCOUNTER 2021-10-26 13:47 | Emergency (ER) | payer OTHER, SELFPAY ==
--- NOTE | 2021-10-26 14:09 | HMH.EDBACK ---
ED Disposition Clinical Impression: Acute low back pain Qualifiers: Back pain laterality: unspecified Sciatica presence: with sciatica Sciatica laterality: sciatica of right side Qualified Code(s): M54.41 - Lumbago with sciatica, right side Disposition: Home, Self-Care Condition on Discharge: Good Instructions: DI for Low Back Pain, DI for Back Pain With Sciatica Prescriptions: Cyclobenzaprine HCl [Cyclobenzaprine 10mg Tab*] 10 mg PO TIDP PRN #30 tab PRN Reason: Moderate To Severe Pain Transmission Status: Pending to [id number] Hydrocodone/Acetaminophen [Hydrocodone-Acetamin 5-325 mg] 1 tab PO TID PRN #9 tab PRN Reason: Moderate To Severe Pain Transmission Status: Sent to [id number] Referrals: Grace Madrigal APRN [Primary Care Provider] - - Critical Care Critical Care Time: No Attestation: On 10/26/21, the high probability of a clinically significant, sudden or life threatening deterioration of the following system(s) required my full and direct attention, intervention and personal management. The time I documented below is in addition to time spent performing reported procedures but includes the following listed in this critical care notation. Medical Decision Making - Medical Records Medical records reviewed: Yes: I reviewed the patient's medical records. - Nehemias Inquiry Pt receiving controlled substance: No Vital Signs: 10/26/21 14:52 10/26/21 15:54 Temperature 98.4 F 98.2 F Temperature Source Oral Oral Pulse Rate 66 Pulse Rate [Left Radial] 111 H Respiratory Rate 17 17 Blood Pressure 124/36 L Blood Pressure [Right Arm] 127/88 Blood Pressure Mean [Right Arm] 101 Blood Pressure Source Automatic Cuff Blood Pressure Position Supine 02 Sat by Pulse Oximetry 99 100 Oxygen Delivery Method Room Air Room Air - Lab Data Lab Results 10/26/21 15:55: Urine Color Yellow, Urine Appearance Clear, Urine pH 7.0, Ur Specific [place] 1.010, Urine Protein Negative, Urine Glucose (UA) Negative, Urine Ketones Negative, Urine Blood Trace-i, Urine Nitrate Negative, Urine Bilirubin Negative, Urine Urobilinogen 0.2, Ur Leukocyte Esterase Negative 10/26/21 : WBC 8.5, RBC 5.10, Hgb 16.2, Hct 48.5 H, MCV 95.2, MCH 31.8 H, MCHC 33.4, RDW 13.6, Plt Count 454 H, MPV 7.8, Neut % (Auto) 70.3, Lymph % (Auto) 18.6, [place] % (Auto) 6.8, Eos % (Auto) 2.8, Baso % (Auto) 1.5, Neut # (Auto) 6.0, Lymph # (Auto) 1.6, [place] # (Auto) 0.6, Eos # (Auto) 0.2, Baso # (Auto) 0.1 10/26/21 : Sodium 138, Potassium 4.0, Chloride 104, Carbon Dioxide 27, Anion Gap 11.0, BUN 11, Creatinine 0.70, Estimated Creat Clear 97, Estimated GFR 93, Est GFR ( Amer) 113, Glucose 88, Calcium 9.5, Total Bilirubin 0.6, AST 44 H, ALT 31, Alkaline Phosphatase 73, Total Protein 7.7, Albumin 4.8, Globulin 2.9, Albumin/Globulin Ratio 1.7 Result diagrams: 10/26/21 Unknown 10/26/21 Unknown Orders (Tests/Meds): ED MEDICATIONS Discontinued Medications Generic Name Dose Route Start Last Admin Trade Name Freq PRN Reason Stop Dose Admin Hydromorphone HCl 0.5 mg 10/26/21 14:54 10/26/21 15:08 Hydromorphone 2mg/Ml Syringe IV 10/26/21 14:55 0.5 mg ONCE ONE Administration Ketorolac Tromethamine 60 mg 10/26/21 14:08 10/26/21 14:24 Ketorolac 60mg/2ml Vial IM 10/26/21 14:09 60 mg ONCE ONE Administration Orphenadrine Citrate 60 mg 10/26/21 14:08 10/26/21 14:24 Orphenadrine Citrate 60mg/2ml Vial IM 10/26/21 14:09 60 mg ONCE ONE Administration ORDERS Category Date Time Status Urinalysis-Acute [Urinalysis and Microscopic] Stat Lab 10/26/21 15:55 Results Back Pain HPI - General Stated Complaint: severe back pain Time Seen by Provider: 10/26/21 14:09 Source of Information: Patient, Relative Limitations: No Limitations - History of Present Illness HPI Narrative: acute low back pain, no injury, naproxen/steroids not helping, assoc with rt leg numbness h/o intermittent chronic lbp s/p disc
[2021-10-26 14:52] VITALS: BP 127/88; PULSE 111; RESP 17; TEMP 36.9; O2SAT 99; BMI 22.8
[2021-10-26 15:34] LABS: Basophils # 0.1 K/mm3 (0-0.2); Basophils % 1.5 % (0.1-2.0); Eosinophils # 0.2 K/mm3 (0.0-0.4); Eosinophils % 2.8 % (0.1-12.0); Hematocrit 48.5 % (37.0-47.0); Hemoglobin 16.2 g/dL (12.2-16.2); Lymphocytes # 1.6 K/mm3 (0.7-4.5); Lymphocytes % 18.6 % (10-50); Mean Corpuscular HGB Conc 33.4 g/dL (31.8-35.4); Mean Corpuscular Hemoglobin 31.8 pg (27.0-31.2); Mean Corpuscular Volume 95.2 fl (81-99); Mean Platelet Volume 7.8 fl (7.4-10.4); Monocytes # 0.6 K/mm3 (0.1-1.0); Monocytes % 6.8 % (1.7-9.3); Neutrophils % 70.3 % (37.0-80.0); Platelet Count 454 K/mm3 (142-424); Red Cell Distribution Width 13.6 % (11.5-17.5); White Blood Count 8.5 K/mm3 (4.8-10.8)
[2021-10-26 15:45] LABS: Alanine Aminotransferase 31 U/L (12-78); Albumin Level 4.8 g/dl (3.5-5.0); Albumin/Globulin Ratio 1.7 (1.1-1.8); Alkaline Phosphatase 73 U/L (38-126); Aspartate Amino Transferase 44 U/L (14-36); Bilirubin,Total 0.6 mg/dl (0.2-1.3); Blood Urea Nitrogen 11 mg/dl (7-17); Calcium 9.5 mg/dl (8.4-10.2); Carbon Dioxide 27 mmol/L (22.0-30.0); Chloride 104 mmol/L (98-107); Creatinine Clearance Estimated 97 mL/min (50-200); Estimated Glomerular Filt Rate 93 ml/min (>60); GFR (African American) 113 ML/MIN (>60); Globulin 2.9 g/dL (1.3-3.2); Glucose 88 mg/dl (74-100); Sodium 138 mmol/L (136-145); Total Protein,Serum 7.7 g/dl (6.3-8.2)
[2021-10-26 15:54] VITALS: BP 124/36; PULSE 66; RESP 17; TEMP 36.8; O2SAT 100
--- NOTE | 2021-10-26 15:54 | PC.NURSE ---
pt to restroom at this time
[2021-10-26 16:08] LABS: Microscopic, Urine URINE MICROSCOPIC (MICROSCOPIC)
[2021-10-26 16:11] LABS: Appearance,Urine CLEAR (Clear); Bilirubin,Urine Negative (Negative); Blood, Urine TRACE-I (Negative); Color,Urine YELLOW (Yellow); Glucose,Urine (UA) Negative (Negative); Ketones,Urine Negative (Negative); Leukocyte Esterase,Urine Negative (Negative); Nitrate,Urine Negative (Negative); Protein,Urine Negative (Negative); Urobilinogen,Urine 0.2 EU/dl (0.2)
[2021-10-26 16:42] LABS: RBC,Urine Occasional #/hpf (0-3)
[2021-10-26 16:43] LABS: Bacteria,Urine 1+ /lpf
[2021-10-26 17:27] VITALS: BP 121/60; PULSE 67; RESP 18; TEMP 36.8; O2SAT 100
== END 2021-10-26 17:36 | disposition home or self-care (01) ==
PROVIDERS: Emergency Provider Emergency Medicine; PCP Nurse Practitioner Family
DX: M54.41 Lumbago with sciatica, right side (principal); R20.0 Anesthesia of skin; K21.9 Gastro-esophageal reflux disease without esophagitis; F17.210 Nicotine dependence, cigarettes, uncomplicated
CPT/HCPCS: 80053; 81001; 85025; 96372; 96374; 96375; 96376; 99283

== ENCOUNTER 2022-03-09 17:00 | Outpatient (RCR) | payer OTHER, SELFPAY | END 2022-03-09 17:05 | disposition home or self-care (01) | LOC: PT 17:00 | PROVIDERS: Visit Provider Nurse Practitioner Family | DX: M79.604 Pain in right leg (principal); M79.89 Other specified soft tissue disorders; M54.31 Sciatica, right side; M54.50 Low back pain, unspecified; M47.816 Spondylosis without myelopathy or radiculopathy, lumbar region | CPT/HCPCS: 97010; 97014; 97033; 97035; 97110; 97112; 97140; 97163; 97530; 97535; G0283 ==

== ENCOUNTER → 2022-03-13 16:44 | Outpatient (CLI) | payer OTHER, SELFPAY ==
[2022-03-13 17:22] LABS: Influenza A, PCR Not Detected (NotDetected); Influenza B, PCR Not Detected (NotDetected)
[2022-03-13 17:59] LABS: Coronavirus 19, PCR Detected (NotDetected)
== END ==
PROVIDERS: PCP Nurse Practitioner Family; Visit Provider Emergency Medicine
DX: U07.1 COVID-19 (principal)
CPT/HCPCS: C9803; U0003; U0005

== ENCOUNTER → 2022-05-18 11:28 | Outpatient (CLI) | payer OTHER, SELFPAY ==
[2022-05-19 10:32] LABS: HSV 1 IgG, Type Spec <0.91 index (0.00-0.90); HSV 2 IgG, Type Spec <0.91 index (0.00-0.90)
[2022-05-19 12:12] LABS: Rapid Plasma Reagin Ab Titer Non Reactive (NonRea<1:1)
[2022-06-15 11:48] LABS: Hep A Ab, IgM NEGATIVE; Hepatitis B Surface Antigen NEGATIVE
[2022-06-15 11:49] LABS: Hepatitis B Core Antibody IgM NEGATIVE; Hepatitis C Antibody <0.1
[2022-06-15 11:50] LABS: HIV Screen 4th Generation wRfx NON REACTIVE
== END ==
LOC: LAB 11:29
PROVIDERS: PCP Nurse Practitioner Family; Visit Provider Nurse Practitioner Obstetrics & Gynecology
DX: N92.0 Excessive and frequent menstruation with regular cycle (principal); Z11.4 Encounter for screening for human immunodeficiency virus [HIV]; Z72.51 High risk heterosexual behavior
CPT/HCPCS: 36415; 80074; 86592; 86695; 86703; 86790; G0432

== ENCOUNTER → 2022-06-03 15:36 | Outpatient (CLI) | payer OTHER, SELFPAY ==
--- NOTE | 2022-06-03 15:36 | MM_ITS ---
PROCEDURE INFORMATION: Exam: MG Left Diagnostic Breast Tomosynthesis Exam date and time: 06/03/2022 3:33 PM Age: 42 years old Clinical indication: Concern for left breast lump. No reported family history of breast cancer. TECHNIQUE: Imaging protocol: Left Diagnostic tomosynthesis and 2D mammography including computer-aided detection (CAD) when performed. Unilateral or bilateral exam. Triangular skin marker placed on lump with spot compression added. COMPARISON: 1. MG MM DIG SCREENING MAMM BI W/CAD 06/23/2021 10:12 AM 2. MG DIG MAMM-SCREEN JOAQUÍN 02/11/2019 3:53 PM 3. MG DXLT MM Dig mamm DX unilat LT CAD 02/05/2018 1:56 PM 4. MG DMBAV DIG MAMM- JOAQUÍN ADD VIEWS W/CAD 06/08/2017 2:25 PM FINDINGS: MAMMOGRAPHY: Breast composition: There are scattered areas of fibroglandular density. Mass: Area of clinical concern corresponds to the larger of 2 adjacent oval masses in the upper outer quadrant, middle 3rd - the larger and more posterior mass is partly visualized and measures 1.1 cm, which is smaller than in 06/08/2017; and the smaller and more anterior mass measures 0.6 cm, which is stable since 06/08/2017. These were shown to be cysts on sonography, most recently from 03/11/2019. Also, a rounded 0.5 cm mass in the inner upper quadrant, middle 3rd, is stable since 06/23/2021. Architectural distortion: None. Calcifications: No suspicious calcifications. Asymmetric density: None. Skin thickening: None. Axillary adenopathy: None. IMPRESSION: Corresponding to the palpable lump are stable masses in the left upper outer quadrant, shown to be cysts on most recent sonography from 03/11/2019. Sonography can be added at this time, as clinically indicated. Further evaluation of a palpable abnormality should be based on clinical grounds regardless of radiographic findings or lack thereof. Please note that patient is due for her annual screening now in May 2022 with recommendation to recall for right breast mammogram. ASSESSMENT: BI-RADS Category 0: Incomplete- Need Additional Imaging Evaluation and/or Prior Mammograms for Comparison
== END ==
LOC: RAD 15:36
PROVIDERS: PCP Family Medicine; Visit Provider Nurse Practitioner Obstetrics & Gynecology
DX: N63.20 Unspecified lump in the left breast, unspecified quadrant (principal); Z80.3 Family history of malignant neoplasm of breast
CPT/HCPCS: 77061; 77065; G0279

== ENCOUNTER → 2022-07-05 15:15 | Outpatient (CLI) | payer OTHER, SELFPAY ==
--- NOTE | 2022-07-05 15:15 | US_ITS ---
PROCEDURE INFORMATION: Exam: US Left Breast, Complete US Right Breast, Complete MG Right Screening 3D Mammography Exam date and time: 07/05/2022 3:18 PM Age: 42 years old Clinical indication: Screening examination; Family history of breast cancer in mother; Mother's age: 42 years; Abnormal findings on imaging; Bilateral and right; Not specified; Additional info: Screening RT breast, TECHNIQUE: Imaging protocol: Complete ultrasound of all four quadrants of the Left breast and the retroareolar regions, including ultrasound of the axilla when performed. Complete ultrasound of all four quadrants of the Right breast and the retroareolar regions, including ultrasound of the axilla when performed. Right Screening tomosynthesis and 2D mammography including computer-aided detection (CAD) when performed. COMPARISON: 1. MG MM DIG MAMM DX UNILAT LT CAD 06/03/2022 3:33 PM 2. MG MM DIG SCREENING MAMM BI W/CAD 06/23/2021 10:12 AM 3. MG DIG MAMM-SCREEN JOAQUÍN 02/11/2019 3:53 PM FINDINGS: MAMMOGRAPHY: Breast density: There are scattered areas of fibroglandular density. Mass: In the right upper outer quadrant there is a new 0.8 cm partially obscured mass , best seen on CC frame 28, MLO frame 16. This mass demonstrates slightly irregular, partially obscured margins on 3D imaging. Architectural distortion: No suspicious distortion. Calcifications: No suspicious calcifications. Asymmetric density: None. Skin thickening: None. Axillary adenopathy: None. ULTRASOUND: Right solid masses: There is an indeterminate lobulated anechoic cyst in the 10 o'clock position 4 cm from the nipple, possibly correlating with the new mass on mammogram. However one-to-one correlation is uncertain. Tissue sampling is recommended. The screening detected mass appears more conspicuous compared to the sonographic finding therefore stereotactic core needle biopsy is recommended. Benign-appearing tiny intramammary lymph node seen in the lower outer quadrant with tiny fatty hilum, at the 7 o'clock position 2 cm from the nipple measuring 0.3 x 0.3 x 0.2 cm. Right cystic masses: Multiple tiny benign-appearing cysts are seen in the upper inner quadrant and lower outer quadrant.. Right architectural distortion: None. Right acoustical shadowing: None. Right skin thickening: None. Right axillary adenopathy: None. Benign-appearing axillary lymph nodes with fatty kali are noted, largest measuring 1.1 cm. Left solid masses: None. Left cystic masses: Complicated cysts within upper outer quadrant at the 1 o'clock position 3 cm full measuring 1.1 x 1.1 x 1.1 cm. This cystic lesion has decreased in size compared to prior exams dating back to 2017 benign etiology. Smaller adjacent complicated cyst in the 2 o'clock position 3 cm from the nipple measures 0.4 x 0.4 x 0.5 cm. These 2 findings correlate with the patient's palpable lump, felt at time of recent diagnostic mammogram dated 06/03/2022. Follow-up is recommended. Additional tiny anechoic cyst in the 4 o'clock position 3 cm measuring 0.2 x 0.2 x 0.1 cm. Additional anechoic cyst in the 2 o'clock position measures 0.6 x 0.4 x 0.7 cm. Left architectural distortion: None. Left acoustical shadowing: None. Left skin thickening: None. Left axillary adenopathy: None. Benign-appearing axillary lymph nodes with fatty kali are noted, largest measuring 0.9 cm. IMPRESSION: Recommend right breast stereotactic core needle biopsy of a new suspicious 0.8 cm mass noted in the right upper outer quadrant. This possibly correlates with an indeterminate lobulated anechoic cystic lesion in the 10 o'clock position on right breast ult
== END ==
LOC: RAD 15:15
PROVIDERS: PCP Nurse Practitioner Family; Visit Provider Nurse Practitioner Obstetrics & Gynecology
DX: R92.8 Other abnormal and inconclusive findings on diagnostic imaging of breast (principal); N63.20 Unspecified lump in the left breast, unspecified quadrant
CPT/HCPCS: 76641; 77063; 77067

== ENCOUNTER → 2022-07-20 07:28 | Outpatient (CLI) | payer OTHER, SELFPAY ==
--- NOTE | 2022-07-20 09:37 | US_ITS ---
FINAL REPORT CLINICAL HISTORY: CYST ASPIRATION RT BREAST FINDINGS: Ultrasound directed cyst aspiration History: Right breast nodule Technique: Originally patient was scheduled for stereotactic biopsy of the nodule within the right breast. However the nodule was not well localized stereotactically. Ultrasound was then directed toward a nodule in the right upper outer quadrant, similar in location and size to the mammographic nodule. Aspiration of the nodule was performed which yielded simple serous fluid. The fluid was sent for cytology which failed to reveal malignant cells associated with the cyst. A post cyst aspiration mammogram was performed which showed the nodule to no longer be evident. IMPRESSION: Technically successful cyst aspiration of subcentimeter nodule of the right breast at 10:00 which account for the mammographic nodule of interest. This is considered benign Recommendation: Annual screening mammography Authenticated and ERN
--- NOTE | 2022-07-20 09:41 | MM_ITS ---
FINAL REPORT CLINICAL HISTORY: . s/p FNA, right breast nodule. Recent cyst aspiration. FINDINGS: MAMMOGRAM, RIGHT TECHNIQUE: Standard digital 2-D views COMPARISON: 12 621 DENSITY: There are scattered areas of fibroglandular density FINDINGS: Specific attention to the right upper outer quadrant shows a previously visualized nodule at 9-10:00 to no longer be evident compatible with aspirated cyst. This corresponds to the nodule originally targeted for stereotactic biopsy. Cytology revealed no evidence of malignancy.. IMPRESSION: Right upper outer quadrant no longer evident following cyst aspiration. This is compatible with benign cyst. RECOMMENDATION: Annual screening mammography BI-RAD 2: BENIGN Authenticated and ERN
== END ==
LOC: RAD 07:29
PROVIDERS: PCP Nurse Practitioner Family; Visit Provider Nurse Practitioner Obstetrics & Gynecology
DX: N63.11 Unspecified lump in the right breast, upper outer quadrant (principal)
CPT/HCPCS: 10005; 77061; 77065; G0279

== ENCOUNTER 2022-09-23 07:23 | Emergency (ER) | payer OTHER, SELFPAY ==
[2022-09-23] VITALS (10 sets, daily range): BP systolic 104–140; BP diastolic 50–84; PULSE 60–78; RESP 17–161; TEMP 36.9; O2SAT 98–100; BMI 20.8
--- NOTE | 2022-09-23 07:25 | CT_ITS ---
FINAL REPORT TECHNIQUE: Axial imaging of the lumbar spine was obtained without contrast. Sagittal and coronal reformatted images were also obtained and reviewed. This study was performed with techniques to keep radiation doses as low as reasonably achievable (ALARA). Individualized dose reduction techniques using automated exposure control or adjustment of mA and/or kV according to the patient's size were employed. CLINICAL HISTORY: back injury, FALL LOWER BACK PAIN, NUMBNESS OF LEGS, UNABLE TO URINATE, HX BACK SURGERY COMPARISON: 10/18/2021 FINDINGS: There is no fracture. The vertebral alignment is normal. There are bulges at multiple levels. There is mild L4-5 and L5-1 neural foraminal narrowing. There is no evidence of significant central canal stenosis. IMPRESSION: Multilevel degenerative change without acute bony abnormality. Reviewed, Interpreted and Dictated by Jamar Arce III, MD Transcribed by Arelis Suh Authenticated and [facility]
--- NOTE | 2022-09-23 07:28 | HMH.EDGENADL ---
Discharge Plan Disposition Patient Disposition: Still a Patient Chief Complaint: Back Pain/Injury Prescriptions Prescriptions: No Action alprazolam [Xanax] 0.5 mg tablet 0.5 mg PO TID PRN (Reason: anxiety) Qty: 20 0RF Referrals Follow up/Referrals: Grace Madrigal APRN [Primary Care Provider] - See instructions Clinical Impressions Clinical Impression: Back pain Instructions Patient Instructions: DI for Low Back Pain Discharge ED Provider: Don Deluna General Adult HPI General Chief complaint: Back Pain/Injury Stated complaint: Leg weakness fall@home 09/23 Time Seen by Provider: 09/23/22 07:25 History of Present Illness HPI narrative: 42-year-old female with history of lumbar surgery presents with acute lower lumbar pain. She says she was walking last night tripped and fell. Since that point she has not been able to get up because of the pain. She has chronic numbness in her right leg this is unchanged. No urinary or bowel incontinence or groin numbness. No direct trauma to her back. Related Data Previous Rx's Medication Instructions Recorded alprazolam 0.5 mg tablet (Xanax) 0.5 mg PO TID PRN anxiety #20 tabs 05/18/22 Allergies Allergy/AdvReac Type Severity Reaction Status Date / Time morphine [MORPHINE] Allergy Unknown ITCHING Verified 05/18/22 10:04 [facility] Disclaimer: The information contained in this section may have been updated after the patient was seen, as this information can be updated by other users. Medical History delivery delivered Family History Other Asthma Cancer Hyperlipidemia Hypertension Social History Smoking Status: Current every day smoker tobacco type: cigarettes packs per day: 1 second hand exposure: Yes alcohol intake: never substance use type: denies use current occupational status: employed Travel in the last 8 weeks: None household members: significant other housing: house current occupation: [employer] current occupational exposures/hazards: No caffeine: Yes ROS Obtained: Yes All systems reviewed & no additional complaints except as documented Constitutional Constitutional: Denies body ache, Denies chills and Denies headache(s) Eyes Eyes: Denies itchy eyes ENT Ears, Nose, Mouth, and Throat: Denies epistaxis and Denies headache(s) Cardiovascular Cardiovascular: Denies dyspnea and Denies edema Respiratory Respiratory: Denies dyspnea Gastrointestinal Gastrointestingal: Denies constipation, diarrhea, nausea or vomiting Genitourinary Female Genitourinary: Denies dysuria and Denies hematuria Musculoskeletal Musculoskeletal: Denies muscle cramps Integumentary/Breasts Skin/Breast: Denies rash Neurologic Neurologic: Denies headache(s) Hematologic/Lymphatic Henatologic/Lymphatic: Denies easy bleeding Allergic/Immunologic Allergic/Immunologic: Denies itchy eyes Physical Exam General General appearance: alert and in no apparent distress Eye Eye exam: Present PERRL and EOMI ENT ENT exam: Present normal exam and normal oropharynx Neck Neck exam: Present normal inspection Chest Chest inspection: Present symmetric chest wall rise Respiratory Respiratory exam: Present normal lung sounds bilaterally; Absent respiratory distress Cardiovascular Cardiovascular exam: Present regular rate and normal rhythm Abdominal Exam Abdominal exam: Present soft; Absent distention, tenderness, guarding, rebound, Donahue's sign or tenderness at McBurney's Point Back Exam Back exam: Present normal inspection (Lumbar back tenderness paraspinal and midline no deformity or step-offs) Neurological Exam Neurological exam: Present alert, oriented X3 and normal gait; Absent motor sensory deficit Psychiatric Psychiatric exam: Present normal affect and normal mood Skin Skin exam: Present warm
--- NOTE | 2022-09-23 07:50 | PC.NURSE ---
pt went to ct via stretcher
--- NOTE | 2022-09-23 08:16 | PC.NURSE ---
Rounded on patient; Mother at BS. Pt lying on ED stretcher with call light in reach. No other needs at this time. Aware that we are waiting on scan results.
--- NOTE | 2022-09-23 08:53 | PC.NURSE ---
Unsuccessful attempts of urinating. Bladder scan performed, 700ml. notified. VO to insert an indwelling urinary catheter.
[2022-09-23 09:04] LABS: Microscopic, Urine URINE MICROSCOPIC (MICROSCOPIC)
[2022-09-23 09:06] LABS: Appearance,Urine CLEAR (Clear); Bilirubin,Urine Negative (Negative); Blood, Urine TRACE-I (Negative); Color,Urine YELLOW (Yellow); Glucose,Urine (UA) Negative (Negative); Ketones,Urine Negative (Negative); Leukocyte Esterase,Urine Negative (Negative); Nitrate,Urine Negative (Negative); PH,Urine 6.5 (5.0-8.5); Protein,Urine Negative (Negative); Specific Gravity, Urine <= 1.005 (1.005-1.030); Urobilinogen,Urine 0.2 EU/dl (0.2)
--- NOTE | 2022-09-23 09:06 | PC.NURSE ---
checked on pt complaint about not being able to pee, aure Xavier placing a [place] catheter no other complaints at this time
--- NOTE | 2022-09-23 09:10 | PC.NURSE ---
650ml emptied from [facility]
--- NOTE | 2022-09-23 09:15 | MR_ITS ---
FINAL REPORT CLINICAL HISTORY: cauda equina syndrome symptoms UNABLE TO URINATE FEELS LIKE LEGS ARENT EVEN ATTACHED NUMBNESS DOWN RIGHT LEG ALWAYS FINDINGS: Multiplanar MR imaging of the lumbar spine was performed without contrast. On the sagittal T2-weighted images, disc degeneration is seen from L3-4 through L5-S1. There is mild retrolisthesis of L3 on 4 and L4 on 5. There is no evidence of fracture. The conus has an unremarkable appearance. L1-2: There is no significant canal stenosis or neural foraminal narrowing. L2-3: There is no significant canal stenosis or neural foraminal narrowing. L3-4: An annular bulge is present. There is no significant canal stenosis or neural foraminal narrowing. L4-5: An annular bulge is present. There is a right foraminal disc protrusion resulting in right L5 nerve root impingement. There is moderate right neural foraminal narrowing. L5-S1: There is a posterior midline annular tear and small central disc protrusion. There is mild bilateral neural foraminal narrowing. IMPRESSION: Right foraminal disc protrusion at L4-5 with right L5 nerve root impingement. Posterior midline annular tear and small central disc protrusion at L5-S1. Reviewed, Interpreted and Dictated by Jamar Arce III, MD Transcribed by Arelis Suh Authenticated and [facility]
--- NOTE | 2022-09-23 09:16 | PC.NURSE ---
requests availability on MRI. MRI states they can take pt now. care management notified. pt updated with POC.
--- NOTE | 2022-09-23 09:20 | PC.NURSE ---
pt went to mr via stretcher
--- NOTE | 2022-09-23 09:22 | PC.NURSE ---
pt to MRI at this time
--- NOTE | 2022-09-23 09:23 | HMH.EDGENADL ---
Discharge Plan Disposition Patient Disposition: Still a Patient Prescriptions Prescriptions: No Action alprazolam [Xanax] 0.5 mg tablet 0.5 mg PO TID PRN (Reason: anxiety) Qty: 20 0RF Referrals Follow up/Referrals: Grace Madrigal APRN [Primary Care Provider] - See instructions Clinical Impressions Clinical Impression: Back pain Instructions Patient Instructions: DI for Low Back Pain Discharge ED Provider: Don Deluna General Adult HPI General Chief complaint: Back Pain/Injury Stated complaint: Leg weakness fall@home 09/23 Time Seen by Provider: 09/23/22 07:25 Mode of Arrival: EMS Source of Information: Patient Limitations: Physical Limitations Description of Symptoms (Recalled from ER Triage Doc. by RN): Presents from home via EMS d/t lower back pain secondary to fall at approx. 02:30 this morning while attempting to use the bathroom. +PMS. Pt describes the pain as muscle spasms. Related Data Previous Rx's Medication Instructions Recorded alprazolam 0.5 mg tablet (Xanax) 0.5 mg PO TID PRN anxiety #20 tabs 05/18/22 Allergies Allergy/AdvReac Type Severity Reaction Status Date / Time morphine [MORPHINE] Allergy Unknown ITCHING Verified 05/18/22 10:04 [facility] Disclaimer: The information contained in this section may have been updated after the patient was seen, as this information can be updated by other users. Medical History delivery delivered Family History Other Asthma Cancer Hyperlipidemia Hypertension Social History Smoking Status: Current every day smoker tobacco type: cigarettes packs per day: 1 second hand exposure: Yes alcohol intake: never substance use type: denies use current occupational status: employed Travel in the last 8 weeks: None household members: significant other housing: house current occupation: [employer] current occupational exposures/hazards: No caffeine: Yes Physical Exam General General appearance: alert and in no apparent distress Medical Decision Making Vital Signs: 09/23/22 07:24 09/23/22 08:07 09/23/22 08:30 Temperature 98.4 F Temperature Source Oral Pulse Rate 70 65 Pulse Rate [Right] 78 Respiratory Rate 161 H 17 Blood Pressure 132/74 115/70 Blood Pressure [Right Arm] 140/50 L Blood Pressure Mean 93 87 Blood Pressure Mean [Right Arm] 80 02 Sat by Pulse Oximetry 100 99 98 Oxygen Delivery Method Room Air Room Air Room Air 09/23/22 09:00 Temperature Temperature Source Pulse Rate 64 Pulse Rate [Right] Respiratory Rate Blood Pressure 111/65 Blood Pressure [Right Arm] Blood Pressure Mean 87 Blood Pressure Mean [Right Arm] 02 Sat by Pulse Oximetry 99 Oxygen Delivery Method Room Air Lab Data Lab Results 09/23/22 09:00: Urine Color Yellow, Urine Appearance Clear, Urine pH 6.5, Ur Specific [place] <= 1.005, Urine Protein Negative, Urine Glucose (UA) Negative, Urine Ketones Negative, Urine Blood Trace-i, Urine Nitrate Negative, Urine Bilirubin Negative, Urine Urobilinogen 0.2, Ur Leukocyte Esterase Negative, Urine RBC 3-5, Urine WBC 3-5, Ur Squamous Epith Cells Occasional, Urine Bacteria None Orders (Tests/Meds): ED MEDICATIONS Discontinued Medications Generic Name Dose Route Start Last Admin Trade Name Champq PRN Reason Stop Dose Admin Hydromorphone HCl 0.5 mg 09/23/22 07:25 09/23/22 07:44 Hydromorphone 2mg/Ml Syringe IV 09/23/22 07:26 0.5 mg ONCE ONE Administration Hydromorphone HCl 0.5 mg 09/23/22 09:22 09/23/22 09:24 Hydromorphone 2mg/Ml Syringe IV 09/23/22 09:23 0.5 mg ONCE ONE Administration Ketorolac Tromethamine 30 mg 09/23/22 07:25 09/23/22 07:44 Ketorolac 30mg/Ml Vial IV 09/23/22 07:26 30 mg ONCE ONE Administration Lidocaine 1 each 09/23/22 07:25 09/23/22 07:44
[2022-09-23 09:25] LABS: Squamous Epithelial Cell,Urine Occasional #/hpf (0-5)
[2022-09-23 10:02] LABS: Basophils # 0.1 K/mm3 (0-0.2); Basophils % 0.9 % (0.1-2.0); Eosinophils # 0.1 K/mm3 (0.0-0.4); Eosinophils % 1.1 % (0.1-12.0); Hematocrit 43.6 % (37.0-47.0); Hemoglobin 13.9 g/dL (12.2-16.2); Lymphocytes # 1.8 K/mm3 (0.7-4.5); Lymphocytes % 17.3 % (10-50); Mean Corpuscular HGB Conc 31.9 g/dL (31.8-35.4); Mean Corpuscular Hemoglobin 30.5 pg (27.0-31.2); Mean Corpuscular Volume 95.6 fl (81-99); Mean Platelet Volume 8.7 fl (7.4-10.4); Monocytes # 0.5 K/mm3 (0.1-1.0); Monocytes % 4.4 % (1.7-9.3); Neutrophils # 8.1 K/mm3 (1.8-7.8); Neutrophils % 76.3 % (37.0-80.0); Platelet Count 407 K/mm3 (142-424); Red Blood Count 4.56 M/mm3 (4.20-5.40); Red Cell Distribution Width 13.2 % (11.5-17.5); White Blood Count 10.6 K/mm3 (4.8-10.8)
--- NOTE | 2022-09-23 10:02 | PC.NURSE ---
pt still in MRI at this time
[2022-09-23 10:03] LABS: Chloride 109 mmol/L (98-107); Sodium 140 mmol/L (136-145)
[2022-09-23 10:06] LABS: Alanine Aminotransferase 14 U/L (12-78); Alkaline Phosphatase 81 U/L (38-126); Aspartate Amino Transferase 31 U/L (14-36); Bilirubin,Total 0.6 mg/dl (0.2-1.3); Blood Urea Nitrogen 8 mg/dl (7-17); Calcium 8.7 mg/dl (8.4-10.2); Carbon Dioxide 28 mmol/L (22.0-30.0); Creatinine Clearance Estimated 102 mL/min (50-200); Estimated Glomerular Filt Rate 111 ml/min (>60); GFR (African American) 134 ML/MIN (>60); Glucose 89 mg/dl (74-100); Total Protein,Serum 6.7 g/dl (6.3-8.2)
--- NOTE | 2022-09-23 10:12 | PC.NURSE ---
pt back from MRI
--- NOTE | 2022-09-23 10:12 | PC.NURSE ---
pt arrived back to room via stretcher
[2022-09-23 10:14] LABS: C-Reactive Protein < 0.3 mg/L (0-4)
--- NOTE | 2022-09-23 10:15 | PC.NURSE ---
From MRI. +PMS to bilateral lower ext.
--- NOTE | 2022-09-23 10:41 | PC.NURSE ---
pt mom requested ice chips, dr benavides said npo until mri results are back, no other complaints at this time mom at bedside
--- NOTE | 2022-09-23 11:07 | PC.NURSE ---
mr ed at bedside
[2022-09-23 11:13] LABS: Erythrocyte Sedimentation Rate 16 mm/hr (0-20)
--- NOTE | 2022-09-23 11:21 | PC.NURSE ---
pt resting no complaints at this time, gave dr william mom at bedside
--- NOTE | 2022-09-23 11:33 | PC.NURSE ---
Discontinued urinary catheter; pt tolerated well.
[2022-09-23 11:50] LABS: Albumin/Globulin Ratio 1.5 (1.1-1.8); Globulin 2.7 g/dL (1.3-3.2)
--- NOTE | 2022-09-23 12:20 | PC.NURSE ---
Patient ambulated to bathroom with standby assist. Pt tolerated well. Pt able to spontaneously void. +nausea. New order received.
--- NOTE | 2022-09-23 12:38 | PC.NURSE ---
rounded on pt, resting in bed no complaints mom at bedside
== END 2022-09-23 12:52 | disposition home or self-care (01) ==
PROVIDERS: Emergency Medicine; Emergency Provider Emergency Medicine; PCP Nurse Practitioner Family
DX: M54.50 Low back pain, unspecified (principal); R53.1 Weakness; W01.0XXA Fall on same level from slipping, tripping and stumbling without subsequent striking against object, initial encounter; F17.210 Nicotine dependence, cigarettes, uncomplicated; Z80.9 Family history of malignant neoplasm, unspecified; Z82.5 Family history of asthma and other chronic lower respiratory diseases
CPT/HCPCS: 51702; 72131; 72148; 76376; 80053; 81001; 85025; 85651; 86140; 96374; 96375; 96376; 99285; J2405

== ENCOUNTER 2022-10-06 15:48 | Emergency (ER) | payer OTHER, SELFPAY ==
--- NOTE | 2022-10-06 16:25 | EXP.UTC ---
Discharge Plan Disposition Patient Disposition: Home, Self-Care Condition: Good Prescriptions Prescriptions: New phenazopyridine 200 mg Tablet 200 mg PO TID Qty: 6 0RF sulfamethoxazole-trimethoprim [Bactrim DS] 800-160 mg Tablet 1 tab PO BID Qty: 14 0RF ondansetron 4 mg Tablet,Disintegrating 4 mg PO Q8H PRN (Reason: Nausea) Qty: 20 0RF Referrals Follow up/Referrals: Grace Madrigal APRN [Primary Care Provider] - See instructions Activity Restrictions/Add. Instructions Additional Instructions/Restrictions: Drink plenty of fluids. Take tylenol or ibuprofen for pain or fever. Take the medications as directed. Follow up with your regular doctor. GO TO THE ER FOR ANY WORSENING SYMPTOMS The pyridium will make your urine turn orange, this is an expected side effect. It will stain your clothes if it comes into contact with them. We will culture the urine. That will tell what bacteria is causing your infection and which antibiotics will treat it best. Sometimes the first antibiotic we prescribe turns out to not work against different bacteria. So, make sure you follow up within 3 days if you are not getting better. Clinical Impressions Clinical Impression: UTI (urinary tract infection) Stand Alone Forms Stand Alone Forms: Work/School Release Instructions Patient Instructions: Urine Culture, DI for Urinary Tract Infection (UTI), Phenazopyridine Discharge ED Provider: Zen Michelle [facility] HPI General Stated complaint: frequent painful urination Time Seen by Provider: 10/06/22 16:25 History of Present Illness Provider Complaint: She states that for the past 2 days she has had worsening dysuria, low back pain, for the past 2 days. Related Data Previous Rx's Medication Instructions Recorded ondansetron 4 mg disintegrating 4 mg PO Q8H PRN Nausea #20 tabs 10/06/22 tablet phenazopyridine 200 mg tablet 200 mg PO TID #6 tabs 10/06/22 sulfamethoxazole 800 1 tab PO BID #14 tabs 10/06/22 mg-trimethoprim 160 mg tablet (Bactrim DS) Allergies Allergy/AdvReac Type Severity Reaction Status Date / Time morphine [MORPHINE] Allergy Unknown ITCHING Verified 05/18/22 10:04 [facility] Disclaimer: The information contained in this section may have been updated after the patient was seen, as this information can be updated by other users. Medical History delivery delivered Family History Other Asthma Cancer Hyperlipidemia Hypertension Social History Smoking Status: Current every day smoker tobacco type: cigarettes packs per day: 1 second hand exposure: Yes alcohol intake: never substance use type: denies use current occupational status: employed Travel in the last 8 weeks: None household members: significant other housing: house current occupation: [employer] current occupational exposures/hazards: No caffeine: Yes ROS Obtained: Yes All systems reviewed & no additional complaints except as documented Constitutional Constitutional: Reports system reviewed and no additional complaints, except as documented, Denies chills and Denies fever(s) Eyes Eyes: Denies eye discharge ENT Ears, Nose, Mouth, and Throat: Denies dysphagia, Denies sore throat and Denies throat swelling Cardiovascular Cardiovascular: Denies chest pain and Denies dyspnea Respiratory Respiratory: Denies chest congestion, Denies cough and Denies dyspnea Gastrointestinal Gastrointestingal: Denies abdominal pain, constipation, diarrhea, dysphagia, nausea or vomiting Genitourinary Female Genitourinary: Reports as per HPI, Reports dysuria, Reports urinary frequency, Denies urinary incontinence, Reports urinary hesitancy and Reports urinary urgency Musculoskeletal Musculoskeletal: Denies arthralgias and Reports back pain Integumenta
[2022-10-06 16:30] VITALS: BP 128/71; PULSE 90; RESP 19; TEMP 37.2; O2SAT 98; BMI 21.9
[2022-10-06 16:59] VITALS: BP 128/71; PULSE 90; RESP 19; TEMP 37.2; O2SAT 98
[2022-10-06 16:59] LABS: Apearance,Urine Cloudy (Clear); Bilirubin,Urine Negative (Negative); Blood, Urine 2+ (Negative); Color,Urine Yellow (Yellow); Glucose,Urine (UA) 100 (Negative); Ketones,Urine Negative (Negative); Protein,Urine 2+ (Negative); Specific Gravity, Urine 1.025 (1.005-1.030); UTC Leukocyte Esterase,Urine 1+ (Negative); UTC Nitrate,Urine Positive (Negative); Urobilinogen,Urine 1 EU/dl (0.2)
== END 2022-10-06 17:20 | disposition home or self-care (01) ==
PROVIDERS: Emergency Provider Nurse Practitioner Family; PCP Nurse Practitioner Family
DX: N39.0 Urinary tract infection, site not specified (principal); B96.20 Unspecified Escherichia coli [E. coli] as the cause of diseases classified elsewhere; R11.0 Nausea
CPT/HCPCS: 81003; 87086; 87088; 87186; 99212; 99214; G0463

== ENCOUNTER → 2023-04-20 06:50 | Outpatient (CLI) | payer OTHER, SELFPAY ==
--- NOTE | 2023-04-20 06:59 | US_ITS ---
FINAL REPORT CLINICAL HISTORY: ABD PAIN COMPARISON: None FINDINGS: Sonographic images of the right upper quadrant were obtained. The pancreas is partially obscured.The liver has an unremarkable appearance. There is a small amount of sludge present in the gallbladder without evidence of wall thickening. There is no evidence of biliary ductal dilatation.The common duct measures 2.4 mm. Limited images of the right kidney are unremarkable. IMPRESSION: Small amount of sludge present in the gallbladder. Otherwise unremarkable ultrasound right upper quadrant. Reviewed, Interpreted and Dictated by Anderson Cummins MD Transcribed by Viki Raphael Authenticated and [facility]
== END ==
LOC: RAD 06:50
PROVIDERS: PCP Nurse Practitioner Family; Visit Provider Nurse Practitioner
DX: R10.11 Right upper quadrant pain (principal)
CPT/HCPCS: 76705

== ENCOUNTER 2023-05-15 14:29 | Emergency (ER) | payer OTHER, SELFPAY ==
[2023-05-15 14:50] VITALS: BP 131/75; PULSE 95; RESP 22; TEMP 37.1; O2SAT 99; BMI 22.8
--- NOTE | 2023-05-15 14:54 | EXP.UTC ---
Discharge Plan Disposition Patient Disposition: Home, Self-Care Condition: Good Prescriptions Prescriptions: New prednisone 10 mg tablet 10 mg PO BID 4 Days Qty: 8 0RF amoxicillin [amoxicillin] 875 mg tablet 875 mg PO Q12H Qty: 20 0RF No Action sertraline 50 mg tablet 50 mg PO DAILY Patient Comments: TAKE 1 TABLET BY MOUTH ONCE DAILY Referrals Follow up/Referrals: Grace Madrigal APRN [Primary Care Provider] - See instructions Activity Restrictions/Add. Instructions Additional Instructions/Restrictions: Drink plenty of fluids. Take tylenol or ibuprofen for pain or fever. Take the medications as directed. Follow up with your regular doctor. GO TO THE ER FOR ANY WORSENING SYMPTOMS Throw your tooth brush away and get a new one. Clinical Impressions Clinical Impression: Strep throat Stand Alone Forms Stand Alone Forms: Work/School Release Instructions Patient Instructions: Strep Throat, DI for Strep Throat Discharge ED Provider: Zen Michelle Blake [facility] HPI General Stated complaint: sore throat and body aches Time Seen by Provider: 05/15/23 14:53 History of Present Illness Provider Complaint: She c/o sore throat for the past 2 days. She has had a fever and chills also. Related Data Home Medications Medication Instructions Recorded Confirmed sertraline 50 mg tablet 50 mg PO DAILY Anxiety 05/15/23 05/15/23 Previous Rx's Medication Instructions Recorded amoxicillin 875 mg tablet 875 mg PO Q12H #20 tabs 05/15/23 prednisone 10 mg tablet 10 mg PO BID 4 days #8 tabs 05/15/23 Allergies Allergy/AdvReac Type Severity Reaction Status Date / Time morphine [MORPHINE] Allergy Unknown ITCHING Verified 05/18/22 10:04 [facility] Disclaimer: The information contained in this section may have been updated after the patient was seen, as this information can be updated by other users. Medical History delivery delivered Family History Other Asthma Cancer Hyperlipidemia Hypertension Social History Smoking Status: Current every day smoker tobacco type: cigarettes packs per day: 1 second hand exposure: Yes alcohol intake: never substance use type: denies use current occupational status: employed Travel in the last 8 weeks: None household members: significant other housing: house current occupation: [employer] current occupational exposures/hazards: No caffeine: Yes ROS Obtained: Yes All systems reviewed & no additional complaints except as documented Constitutional Constitutional: Reports chills and Reports fever(s) Eyes Eyes: Denies eye discharge ENT Ears, Nose, Mouth, and Throat: Reports as per HPI Cardiovascular Cardiovascular: Denies chest pain Respiratory Respiratory: Denies chest congestion and Reports cough Gastrointestinal Gastrointestingal: Reports nausea; Denies abdominal pain, constipation, cramping, diarrhea or vomiting Musculoskeletal Musculoskeletal: Denies arthralgias Integumentary/Breasts Skin/Breast: Denies rash Neurologic Neurologic: Denies paresthesias Physical Exam General General appearance: alert and in no apparent distress Head Head exam: atraumatic, normocephalic and normal inspection Eye Eye exam: Present normal appearance, PERRL and EOMI ENT ENT exam: Present mucous membranes moist and normal external ear exam Expanded ENT Exam TM/Canal exam: Bilateral TM: erythema and bulging Nose exam: Absent sinus tenderness Mouth exam: Present normal external inspection; Absent drooling Teeth exam: Present normal inspection Throat exam: Present tonsillar erythema, tonsillomegaly and tonsillar exudate Neck Neck exam: Present normal inspection, full ROM and trachea midline; Absent tenderness, meningismus or lymphadenopathy Chest Chest inspection: Pre
[2023-05-15 15:06] LABS: UTC Influenza A Antigen Negative (Negative); UTC Strep Screen (Rapid) Positive (Negative)
[2023-05-15 15:07] LABS: UTC Influenza B Antigen Negative (Negative)
[2023-05-15 15:13] VITALS: BP 131/75; PULSE 95; RESP 22; TEMP 37.1; O2SAT 99
== END 2023-05-15 15:25 | disposition home or self-care (01) ==
PROVIDERS: Emergency Provider Nurse Practitioner Family; PCP Nurse Practitioner Family
DX: J02.0 Streptococcal pharyngitis (principal); F17.210 Nicotine dependence, cigarettes, uncomplicated
CPT/HCPCS: 87804; 87880; 96372; 99212; 99214; G0463

== ENCOUNTER → 2023-05-22 10:15 | Outpatient (CLI) | payer OTHER, SELFPAY ==
--- NOTE | 2023-05-22 10:22 | NM_ITS ---
FINAL REPORT CLINICAL HISTORY: ABD PAIN, SLUDGE ON U/S COMPARISON: None FINDINGS: Sequential anterior projection images of the abdomen were obtained after the intravenous injection of 8.67 mCi technetium 99m Choletec. There is normal uptake of radiotracer by the liver. The bile ducts are visualized by 10 minutes. Gallbladder activity is seen by 20 minutes. Bowel activity is noted by 10 minutes. After 1 hour, 1.1 ?g of CCK was injected intravenously for calculation of gallbladder ejection fraction. The gallbladder ejection fraction is 91%, which is within normal limits. IMPRESSION: No evidence of cystic duct or bile duct obstruction. Normal gallbladder ejection fraction of 91%. Reviewed, Interpreted and Dictated by Jamar Arce III, MD Transcribed by Viki Raphael Authenticated and [facility]
== END ==
LOC: RAD 10:16
PROVIDERS: PCP Nurse Practitioner; Visit Provider Nurse Practitioner
DX: R10.9 Unspecified abdominal pain (principal)
CPT/HCPCS: 78227; A9537; J2805

== ENCOUNTER 2023-08-03 15:52 | Outpatient (CLI) | payer OTHER, SELFPAY ==
--- NOTE | 2023-08-03 15:56 | MM_ITS ---
PROCEDURE INFORMATION: Exam: MG Bilateral Screening 3D Mammography Exam date and time: 08/03/2023 3:43 PM Age: 43 years old Clinical indication: Screening examination TECHNIQUE: Imaging protocol: Bilateral Screening tomosynthesis and 2D mammography including computer-aided detection (CAD) when performed. COMPARISON: MG MM DIG MAMM DX UNILAT RT CAD 07/20/2022 9:42 AM FINDINGS: MAMMOGRAPHY: Breast composition: There are scattered areas of fibroglandular density. Mass: No new or suspicious masses Architectural distortion: None. Calcifications: No suspicious calcifications. Asymmetric density: None. Skin thickening: None. Axillary adenopathy: None. IMPRESSION: No mammographic evidence of malignancy. Annual screening is recommended unless otherwise clinically indicated. ASSESSMENT: BI-RADS Category 1: Negative
== END 2023-08-03 23:59 ==
LOC: RAD 15:53
PROVIDERS: PCP Family Medicine; Visit Provider Nurse Practitioner Obstetrics & Gynecology
DX: Z12.31 Encounter for screening mammogram for malignant neoplasm of breast (principal)
CPT/HCPCS: 77063; 77067

== ENCOUNTER 2024-05-04 08:24 | Outpatient (CLI) | payer OTHER, SELFPAY ==
[2024-05-04 09:07] LABS: Alanine Aminotransferase 20 U/L (12-78); Albumin Level 4.2 g/dl (3.5-5.0); Albumin/Globulin Ratio 1.8 (1.1-1.8); Alkaline Phosphatase 77 U/L (38-126); Aspartate Amino Transferase 31 U/L (14-36); Bilirubin,Total 0.7 mg/dl (0.2-1.3); Blood Urea Nitrogen 12 mg/dl (7-17); Calcium 9.3 mg/dl (8.4-10.2); Carbon Dioxide 21 mmol/L (22.0-30.0); Chloride 110 mmol/L (98-107); Chol/HDL Ratio 5.5 (1-3.5); Cholesterol 230 mg/dl (140-200); Estimated Glomerular Filt Rate 110 ml/min (>60); GFR (African American) 133 ML/MIN (>60); Globulin 2.4 g/dL (1.3-3.2); Glucose 92 mg/dl (74-100); HDL Cholesterol 42 mg/dl (40-60); Magnesium 1.9 mg/dl (1.6-2.3); Sodium 138 mmol/L (136-145); Total Protein,Serum 6.6 g/dl (6.3-8.2); Triglycerides 108 mg/dl (30-150); VLDL Cholesterol 22 mg/dL (0-40)
[2024-05-04 09:25] LABS: 25-OH Vitamin D, Total 33.7 ng/mL (30-100)
[2024-05-04 09:26] LABS: Basophils # 0.1 K/mm3 (0-0.2); Basophils % 1.3 % (0.1-2.0); Eosinophils # 0.3 K/mm3 (0.0-0.4); Hemoglobin 14.2 g/dL (12.2-16.2); Lymphocytes # 2.6 K/mm3 (0.7-4.5); Lymphocytes % 29.8 % (10-50); Mean Corpuscular HGB Conc 33.8 g/dL (31.8-35.4); Mean Corpuscular Hemoglobin 30.8 pg (27.0-31.2); Mean Corpuscular Volume 91.2 fl (81-99); Mean Platelet Volume 7.5 fl (7.4-10.4); Monocytes # 0.5 K/mm3 (0.1-1.0); Monocytes % 6.2 % (1.7-9.3); Neutrophils # 5.1 K/mm3 (1.8-7.8); Neutrophils % 59.7 % (37.0-80.0); Platelet Count 439 K/mm3 (142-424); Red Cell Distribution Width 13.1 % (11.5-17.5); White Blood Count 8.6 K/mm3 (4.8-10.8)
[2024-05-04 09:36] LABS: Thyroid Stimulating Hormone 0.73 uIU/mL (0.465-4.68)
[2024-05-04 10:35] LABS: Ferritin 28.1 ng/ml (6.24-137)
[2024-05-04 12:42] LABS: Direct LDL Cholesterol 158.31 mg/dL (100-129)
[2024-05-04 12:45] LABS: Vitamin B12 678 pg/mL (239-931)
[2024-05-05 08:24] LABS: FSH 17.1 mIU/mL (.); LH 11.5 mIU/mL (.); Progesterone 0.7 ng/mL (.); Triiodothyronine (T3) Free 3.4 pg/mL (2.0-4.4)
[2024-06-06 15:36] LABS: Antinuclear Antibodies (ANA) Negative
== END 2024-05-04 23:59 | disposition home or self-care (01) ==
LOC: LAB 08:25
PROVIDERS: PCP Nurse Practitioner Family; Visit Provider Nurse Practitioner Family
DX: R63.5 Abnormal weight gain (principal); R23.2 Flushing; R53.83 Other fatigue; E07.89 Other specified disorders of thyroid
CPT/HCPCS: 36415; 80050; 80053; 80061; 82306; 82533; 82607; 82670; 82728; 83001; 83002; 83735; 84144; 84443; 84481; 85025; 86038; 86225; 86235

== ENCOUNTER 2024-05-16 15:46 | Outpatient (CLI) | payer OTHER, SELFPAY ==
--- NOTE | 2024-05-16 15:47 | US_ITS ---
PROCEDURE INFORMATION: Exam: US Soft Tissue Head and Neck, Thyroid Exam date and time: 05/16/2024 3:55 PM Age: 44 years old Clinical indication: Other: Nodules; Additional info: Pain, nodule TECHNIQUE: Imaging protocol: Real-time ultrasound scan of the neck with image documentation. Exam focused on the thyroid. COMPARISON: No relevant prior studies available. FINDINGS: Right thyroid lobe: Measures 5.1 x 1.6 x 1.8 cm. Left thyroid lobe: Measures 4.9 x 1.0 x 1.2 cm. Isthmus: Measures 0.22 cm. Right nodules: Thyroid nodule 1 Size: 0.8 x 0.5 cm. Thyroid nodule 1 Location: Mid pole. Thyroid nodule 1 Composition: Solid. Thyroid nodule 1 Echogenicity: Hypoechoic Thyroid nodule 1 Shape: Wider than tall Thyroid nodule 1 Margins: Smoothly marginated. Thyroid nodule 1 Echogenic foci: No echogenic focus. Thyroid nodule 1 Points: 4. Thyroid nodule 2 Size: 0.6 x 0.5. Thyroid nodule 2 Location: Lower lobe. Thyroid nodule 2 Composition: Cystic with calcification. Thyroid nodule 2 Echogenicity: Anechoic. Thyroid nodule 2 Shape: Wider than tall Thyroid nodule 2 Margins: Smoothly marginated. Thyroid nodule 2 Echogenic foci: Calcification. Thyroid nodule 2 Points: 0. Left nodules: Thyroid nodule 1 Size: 0.2 x 0.15 cm. Thyroid nodule 1 Location: Upper pole. Thyroid nodule 1 Composition: Colloid cystic. Thyroid nodule 1 Echogenicity: Hypoechoic Thyroid nodule 1 Shape: Wider than tall Thyroid nodule 1 Margins: Smoothly marginated. Thyroid nodule 1 Echogenic foci: No echogenic focus Thyroid nodule 1 Points: 0. Thyroid nodule 2 Size: 0.27 x 0.16 cm. Thyroid nodule 2 Location: Mid pole. Thyroid nodule 2 Composition: Colloid cystic. Thyroid nodule 2 Echogenicity: Anechoic. Thyroid nodule 2 Shape: Wider than tall Thyroid nodule 2 Margins: Smoothly marginated. Thyroid nodule 2 Echogenic foci: No echogenic focus. Thyroid nodule 2 Points: 0. IMPRESSION: 1. Right thyroid nodule 1: T1-RAD 4. Moderately Suspicious: FNA if = 1.5 cm; Follow if = 1 cm at 1, 2, 3, and 5 y New line 2. 2. Right thyroid nodule 2: T1-RAD. Benign: No FNA. 3. Left thyroid nodule 1: T1-RAD. Benign: No FNA. 4. Left thyroid nodule 2: T1-RAD. Benign: No FNA.
== END 2024-05-16 23:59 | disposition home or self-care (01) ==
LOC: RAD 15:47
PROVIDERS: PCP Nurse Practitioner Family; Visit Provider Nurse Practitioner Family
DX: E07.89 Other specified disorders of thyroid (principal)
CPT/HCPCS: 76536

== ENCOUNTER 2024-08-11 08:00 | Emergency (ER) | payer OTHER, SELFPAY ==
[2024-08-11 08:14] VITALS: BP 142/80; PULSE 77; RESP 18; TEMP 37.4; O2SAT 98; BMI 26.2
[2024-08-11 08:25] LABS: UTC Influenza A Antigen Negative (Negative); UTC Strep Screen (Rapid) Negative (Negative)
[2024-08-11 08:26] LABS: UTC Influenza B Antigen Negative (Negative)
--- NOTE | 2024-08-11 08:28 | ED_ITS ---
Discharge Plan Disposition Patient Disposition: Home, Self-Care Condition: Good Prescriptions Prescriptions: New azithromycin [Zithromax] 250 mg tablet 250 mg PO UD DOSE PK Qty: 6 0RF Rx Instructions: Take two (2) tablets today, then one (1) tablet days #2 thru #5 ibuprofen 600 mg tablet 600 mg PO Q6HP PRN (Reason: Mild Pain) Qty: 30 0RF fbjlymurixcottr-routrskrj-HS [Bromfed DM] 2-30-10 mg/5 mL Syrup 5 ml PO Q6H PRN (Reason: Cough) Qty: 240 0RF No Action sertraline 50 mg tablet 50 mg PO DAILY Patient Comments: TAKE 1 TABLET BY MOUTH ONCE DAILY Referrals Follow up/Referrals: Grace Madrigal APRN [Primary Care Provider] - See instructions Activity Restrictions/Add. Instructions Additional Instructions/Restrictions: Drink plenty of fluids. Take tylenol or ibuprofen for pain or fever. Take the medications as directed. Follow up with your regular doctor. GO TO THE ER FOR ANY WORSENING SYMPTOMS Clinical Impressions Clinical Impression: Pharyngitis Stand Alone Forms Stand Alone Forms: Work/School Release Instructions Patient Instructions: DI for Pharyngitis/Tonsillopharyngitis -- Adult, DI for Viral Syndrome Print Language Print Language: Kiswahili Discharge ED Provider: Zen Michelle [facility] General Stated complaint: st ba runny nose diarrhea Mode of Arrival: Ambulatory Source of Information: Patient Time Seen by Provider: 08/11/24 08:15 Description of Symptoms (Recalled from Triage Doc. by RN): MEDRANO, BA, SORE THROAT, FEVER, EYE DRAINAGE HEENT Symptoms (Recalled from RN notes): Yes Resp Symptoms (Recalled from RN notes): Yes Skin Symptoms (Recalled from RN notes): No MS Symptoms (Recalled from RN notes): No Functional Status (Recalled from RN notes): WNL History of Present Illness Provider Complaint: She states that for the past 2 days she has had fever, chills, sore throat, body aches, chills, and malaise. Related Data Home Medications ?Medication ?Instructions ?Recorded ?Confirmed sertraline 50 mg tablet 50 mg PO DAILY Anxiety 05/15/23 08/11/24 Previous Rx's ?Medication ?Instructions ?Recorded azithromycin 250 mg tablet 250 mg PO UD DOSE PK #6 tabs 08/11/24 (Zithromax) lhdiaoxxqhmmhjv-jpeuycbonuojqld-FX 5 ml PO Q6H PRN Cough #240 mL 08/11/24 2 mg-30 mg-10 mg/5 mL oral syrup (Bromfed DM) ibuprofen 600 mg tablet 600 mg PO Q6HP PRN Mild Pain #30 08/11/24 tabs Allergies Allergy/AdvReac Type Severity Reaction Status Date / Time morphine (MORPHINE) Allergy Unknown ITCHING Verified 06/25/24 08:57 Worker's Comp Is this a Worker's Comp case?: No [facility] Disclaimer: The information contained in this section may have been updated after the patient was seen, as this information can be updated by other users. Medical History (Updated 08/11/24 @ 08:42 by Zen Michelle APRN) Night sweats delivery delivered Surgical History (Updated 06/25/24 @ 09:01 by KAVITHA Chung) History of Hx of hysterectomy History of back surgery Family History Other Asthma Cancer Hyperlipidemia Hypertension Social History (Updated 06/25/24 @ 09:02 by KAVITHA Chung) Smoking Status: Former smoker tobacco type: cigarettes packs per day: 1 how long ago did patient quit smokin second hand exposure: Yes alcohol intake: never substance use type: denies use current occupational status: employed Travel in the last 8 weeks: None household members: significant other housing: house current occupation: [employer] current occupational exposures/hazards: No caffeine: Yes Have you lived/traveled outside [place] in past 30 days?: No Contact w/someone who lives/traveled outside US past 30 days?: No Exposure to someone with infectious disease in past 14 days?: No Do you have a fever (greater than 100.4 F or 38 C)?: No Have you tested positive for COVID-19: No Exposed to someone with COVID-19 in past 14 days?: No Do you have a sore throat?: Yes Do you have a cough?: No Do you have any weakness?: No Do you have any diarrhea?: Yes Are you experiencing any unusual bleeding?: No Do you have any muscle aches/pain?: No Do you have any abdominal pain?: No Are you experiencing loss of taste or smell?: No ROS Obtained: Yes All systems reviewed & no additional complaints except as documented Constitutional Constitutional: Reports chills and Reports fever(s) Eyes Eyes: Denies eye discharge ENT Ears, Nose, Mouth, and Throat: Reports as per HPI Cardiovascular Cardiovascular: Denies chest pain Respiratory Respiratory: Denies chest congestion and Reports cough Gastrointestinal Gastrointestingal: Reports nausea; Denies abdominal pain, constipation, cramping, diarrhea or vomiting Musculoskeletal Musculoskeletal: Denies arthralgias Integumentary/Breasts Skin/Breast: Denies rash Neurologic Neurologic: Denies paresthesias Physical Exam General General appearance: alert and in no apparent distress Head Head exam: atraumatic, normocephalic and normal inspection Eye Eye exam: Present normal appearance, PERRL and EOMI ENT ENT exam: Present mucous membranes moist and normal external ear exam Expanded ENT Exam TM/Canal exam: Bilateral TM: erythema and bulging Nose exam: Absent sinus tenderness Mouth exam: Present normal external inspection; Absent drooling Teeth exam: Present normal inspection Throat exam: Present tonsillar erythema, tonsillomegaly and tonsillar exudate Neck Neck exam: Present normal inspection, full ROM and trachea midline; Absent tenderness, meningismus or lymphadenopathy Chest Chest inspection: Present normal inspection and symmetric chest wall rise; Absent tenderness Respiratory Respiratory exam: Present normal lung sounds bilaterally; Absent respiratory distress, wheezes, stridor or accessory muscle use Cardiovascular Cardiovascular exam: Present regular rate and normal rhythm; Absent systolic murmur or diastolic murmur Abdominal Exam Abdominal exam: Present soft and normal bowel sounds; Absent distention, t enderness, guarding, rebound or rigidity Extremities Exam Extremities exam: Present normal inspection and normal capillary refill; Absent calf tenderness Back Exam Back exam: Present normal inspection and full ROM; Absent tenderness, CVA tenderness (R) or CVA tenderness (L) Neurological Exam Neurological exam: Present alert, oriented X3 and CN II-XII intact Psychiatric Psychiatric exam: Present normal affect and normal mood Skin Skin exam: Present warm, dry, intact and normal color Medical Decision Making Medical Records Medical records reviewed: No I reviewed the patient's medical records. Screening: Per USPSTF and CDC recommendations, given the prevalence of disease in our region, it is our hospital?s policy to screen for HIV and viral Hepatitis for all patients aged 18 and over and those with ongoing risk factors. Nehemias Inquiry Pt receiving controlled substance: No Vital Signs: 08/11/24 08:14 Temperature 99.3 F Temperature Source Oral Pulse Rate [Left Radial] 77 Respiratory Rate 18 Blood Pressure [Left Arm] 142/80 H Blood Pressure Mean [Left Arm] 100 02 Sat by Pulse Oximetry 98 Lab Data Lab results reviewed: Yes I reviewed the patient's lab results. Lab Results 08/11/24 08:10: Influenza Type A Ag Negative, Influenza Type B Ag Negative, Strep Scn Rapid Clinic Negative Orders (Tests/Meds): ORDERS Category Date Time Status Strep Screen Confirmation Stat Micro 08/11/24 08:10 Received
[2024-08-11 08:42] VITALS: BP 142/80; PULSE 77; RESP 18; TEMP 37.4
[2024-08-11 08:49] LABS: Coronavirus 19, PCR Not Detected (NotDetected); Influenza A, PCR Not Detected (NotDetected); Influenza B, PCR Not Detected (NotDetected)
== END 2024-08-11 08:47 | disposition home or self-care (01) ==
PROVIDERS: Emergency Provider Nurse Practitioner Family; PCP Nurse Practitioner Family
DX: J02.9 Acute pharyngitis, unspecified (principal)
CPT/HCPCS: 87636; 87804; 87880; 99213; G0381

== ENCOUNTER 2024-09-06 16:54 | Outpatient (CLI) | payer OTHER, SELFPAY ==
--- NOTE | 2024-09-06 16:54 | MM_ITS ---
PROCEDURE INFORMATION: Exam: MG Bilateral Screening 3D Mammography Exam date and time: 09/06/2024 4:58 PM Age: 44 years old Clinical indication: Screening exam. TECHNIQUE: Imaging protocol: Bilateral Screening tomosynthesis and 2D mammography including computer-aided detection (CAD) when performed. COMPARISON: 1. MG MM DIG SCREENING MAMM BI W/CAD 08/03/2023 3:43 PM 2. MG MM DIG MAMM DX UNILAT RT CAD 07/20/2022 9:42 AM FINDINGS: MAMMOGRAPHY: Breast composition: There are scattered areas of fibroglandular density. Mass: No suspicious masses. Architectural distortion: None. Calcifications: No suspicious calcifications. Asymmetric density: None. Skin thickening: None. Axillary adenopathy: None. IMPRESSION: No mammographic evidence of malignancy. Annual screening is recommended unless otherwise clinically indicated. ASSESSMENT: BI-RADS Category 1: Negative.
== END 2024-09-06 23:59 | disposition home or self-care (01) ==
LOC: RAD 16:54
PROVIDERS: PCP Nurse Practitioner Family; Visit Provider Nurse Practitioner Obstetrics & Gynecology
DX: Z12.31 Encounter for screening mammogram for malignant neoplasm of breast (principal)
CPT/HCPCS: 77063; 77067

== ENCOUNTER 2025-05-29 08:56 | Outpatient (CLI) | payer OTHER, SELFPAY ==
[2025-05-29 14:32] LABS: Coronavirus 19, PCR Not Detected (NotDetected); Influenza A, PCR Not Detected (NotDetected); Influenza B, PCR Not Detected (NotDetected)
--- OUTSIDE RECORDS SUMMARY | 2025-06-02 09:01 | XMS_ITS | Clinical Summary ---
[facility] Address [address] [place] [address] Care Team Providers Care It Field Technician Name Role Phone You Hernandez MD Primary Care Provider + Allergies Active Allergy Reactions Criticality Noted Date Comments Morphine Itching Medium 08/14/2018 Medications predniSONE (DELTASONE) 5 MG tablet //4/3/2/ as directed daily for 6 days 21 tablet 08/14/2018 Active Social History Tobacco Use Types Packs/Day Years Used Date Smoking Tobacco: Never Assessed Abuse Screen Answer Date Recorded Unsafe at Home or Work/School Not on file Feels Threatened by Someone? Not on file 03/2023 Does Anyone Keep You from Co ntacting Others or Doint Things Outside the Home? Not on file 05/08/2023 Physical Sign of Abuse Present Not on file 1 Housing Stability Answer Date Recorded Current Living Arrangements Not on file 03/2023 Potentially Unsafe Housing Conditions Not on fred e 05/08/2023 Family and Community Support Answer Babar e Recorded Help with Day-to-Day Activities Not on file 05/08/2023 Lonely or Isolated Not on file 05/08/2023 Employment Answer Date Recorded Do you want help finding or keeping work or a marcio b? Not on file 05/08/2023 Disabilities Answer Date Recorded Concentrating, Remembering, or Making Decisions Difficulty Not on file 05/08/2023 Doing Errands Independently Difficulty Not on fi le 05/08/2023 Education Answer Date Recorded Help with school or training? Not on file Preferred Language Not on file 05/08/2023 Comments Unknown Sex and Gender Information Value Date Recorded Sex Assigned at Not on file Legal Sex Female 12:22 PM EDT Gender Identity Not on file Sexual Orientation Not on file Last Filed Vital Signs Vital Sign Reading Time Taken Comments Blood Pressure - - Pulse 99 08/14/2018 5:08 PM EST Temperature 37.1 C (98.8 F) 08/14/2018 5:08 PM EST Respiratory Rate 18 08/14/2018 5:08 PM EST Oxygen Saturation 100% 08/14/2018 5:08 PM EST Inhaled Oxygen Concentration - - Weight 55.3 kg (122 lb) 08/14/2018 5:08 PM EST Height 157.5 cm (5' 2 ) 08/14/2018 5:08 PM EST Body Mass Index 22.31 08/14/2018 5:08 PM EST Plan of Treatment Health Maintenance Due Date Last Done Comments Annual Gynecologic Pelvic an d Breast Exam 1982 TDAP/TD VACCINES (1 - Tdap) 2001 ANNUAL PHYSICAL 08/14/2018 HEPATITIS C SCREENING 08/14/2018 MAMMOGRAM 2022 INFLUENZA VACCINE 02/28/2025 Pneumococcal Vaccine 0-49 Aged Out No longer eligible based on patient's age to complete this topic Insurance Care Teams It Field Technician Relationship Specialty Start Date End Date You Hernandez MD PCP - General Family Medicine 08/14/18
== END 2025-05-29 23:59 ==
LOC: LAB.DROPOF 06-02 08:57
PROVIDERS: PCP Nurse Practitioner Family; Visit Provider Student in an Organized Health Care Education/Training Program
DX: J06.9 Acute upper respiratory infection, unspecified (principal)
CPT/HCPCS: 87631

== ENCOUNTER 2025-07-01 14:53 | Outpatient (CLI) | payer OTHER, SELFPAY ==
--- OUTSIDE RECORDS SUMMARY | 2025-07-01 14:56 | XMS_ITS | Clinical Summary ---
[facility] Address [address] [place] [address] Care Team Providers Care Outdoor Power Equipment Mechanic Name Role Phone You Hernandez MD Primary [...] to complete this topic Insurance Care Teams Outdoor Power Equipment Mechanic Relationship Specialty Start Date End Date You Hernandez MD PCP - General Family Medicine 08/14/18
--- NOTE | 2025-07-01 15:00 | US_ITS ---
FINAL REPORT TECHNIQUE: Sonographic images of the thyroid gland were obtained in the longitudinal and transverse planes. CLINICAL HISTORY: history of thyroid nodules FINDINGS: The right lobe measures 1.5 x 4.6 x 1.6 cm. There is a hypoechoic, 8 mm nodule in the mid right thyroid which is wider than tall, TR 4. There is also a 6 mm colloid cyst. The left lobe measures 1.6 x 3.9 x 1.0 cm. There is a tiny, 3 mm hypoechoic nodule. The isthmus measures 2 mm. This is normal. IMPRESSION: 1. TIRADS category 4 nodule right. Based on size, there are no current recommendations regarding follow up. 2. TR 4 left thyroid nodule, 3 mm. Too small for follow-up. Reviewed, Interpreted and Dictated by Jenniffer Mendez MD Transcribed by Rosie Gordillo Authenticated and [facility]
== END 2025-07-01 23:59 | disposition home or self-care (01) ==
LOC: RAD 14:54
PROVIDERS: PCP Nurse Practitioner Family; Visit Provider Student in an Organized Health Care Education/Training Program
DX: E04.2 Nontoxic multinodular goiter (principal)
CPT/HCPCS: 76536